=== PATIENT | male | born 1980 | race Caucasian/White ===

== ENCOUNTER → 2016-12-10 | Day surgery (SDC) | payer OTHER ==
[2016-12-04 07:41] VITALS: Ht 165.1 cm; Wt 93.2 kg
[~2016-12-10] VITALS: Ht 165.1 cm; Wt 93.2 kg
[~2016-12-10] MED LIST: 500ML BSS 0.3ML EPI 1:1000PF IRRIG ONE; ACETAMINOPHEN 325 MG TAB PO PRN; AMVISC PLUS 0.8ML SYRINGE INT OCU ONE; ATROPINE SULFATE 0.1 MG/ML 5ML SYR IV PRN; BRIMONIDINE TART 0.2% OP SOLN PER DROP CHARGE ONE; BROM0.07; BSS FLUSH ONE; CIPR1SUS5; ENDOCOAT 0.85ML SYRINGE INT OCU ONE; EpHEDrine SULFATE INJ 50 MG/ML AMP IV PRN; EpINEphrine INJ 1MG/ML AMP 1 MG/ML AMP ONE; LACTATED RINGER'S 1000ML 500 ML IV SCH; LIDOCAINE 4% OP SOLN DROP CHARGE ONE; LIDOCAINE 4% OP SOLN DROP CHARGE OPL SCH; LIDOCAINE HCL 1% MPF 2 ML VIAL ONE; MIDAZOLAM HCL 1 MG/ML 2ML VIAL ONE; MOXIFLOXACIN OPH SOLN PER DROP CHARGE ONE; ONDA4TAB46 PO; ONDA4TAB65 PO; OXYC-57 PO; POVIDONE-IODINE OP SOLN 30 ML BTL ONE; PRED1SUS3 OPL; PROPARACAINE 0.5% OP SOLN PER DROP CHARGE OPL SCH; TOBRAMYCIN/DEXAMETHASONE OPH OINT PER APPLN CHARGE ONE; TRAM-10 PO
[2016-12-10] MEDS: PHENYLEPHRINE HCL 2.5% OP SOLN PER DROP CHARGE OPL SCH ×2 (09:58→10:03)
[2016-12-10] MEDS: TROPICAMIDE 1% OP SOLN PER DROP CHARGE OPL SCH ×2 (09:59→10:04)
[2016-12-10] MEDS: CYCLOPENTOLATE HCL 1% OP SOLN PER DROP CHARGE OPL SCH ×2 (10:00→10:05)
[2016-12-10] MEDS: KETOROLAC 0.5% OP SOLN PER DROP CHARGE OPL SCH ×2 (10:01→10:06)
[2016-12-10] MEDS: MOXIFLOXACIN OPH SOLN PER DROP CHARGE OPL SCH ×2 (10:02→10:12)
--- NOTE | 2016-12-10 10:21 | History & Physical Bridge - [place] ---
H&P Re-Evaluation Bridge Note: I have examined the patient, reviewed the History & Physical and in the interval since the performance of the History & Physical I have noted the following changes of clinical significance: No changes noted
--- NOTE | 2016-12-10 10:42 | [facility] Post Operative Brief Note ---
Immediate Operative Summary Operative Date Dec 10, 2016. Pre-Operative Diagnosis Cataract left eye Post-Operative Diagnosis same Procedure(s) Performed Left Cataract Phacoemulsification With Intraocular Lens Implant Surgeon Dr Parry [employer] Installer Surgeon(s) 0 Estimated Blood Loss 0 Findings cataract left eye Specimens 0 Complication(s) None Disposition Recovery Room / PACU
--- NOTE | 2016-12-10 10:42 | Discharge Instructions-SurgCtr ---
Discharge Instructions Visit Reason for Visit: Left Cataract Discharge Discharge Diagnosis / Problem: cataract left eye Discharge Goals Goal(s): Improve function Activity Recommendations Activity Limitations: per Instructions/Follow-up section Lifting Limitations: no more than 5 pounds Anesthesia . Post Anesthesia Instructions: If you have had General Anesthesia or IV Sedation: * Do not drive today. * Resume driving when surgeon permits. * Do not make important decisions or sign legal documents today. * Call surgeon for: 1. Temperature elevations greater than 101 degrees F. 2. Uncontrollable pain. 3. Excessive bleeding. 4. Persistent nausea and vomiting. 5. Medication intolerance (nausea, vomiting or rash). * For nausea and vomiting use only clear liquids such as: tea, soda, bouillon until nausea subsides, then gradually increase diet as tolerated. * If you have any concerns or questions, call your surgeon's office. If physician is unavailable and it is an emergency, call 911 or go to the nearest emergency room. . Instructions / Follow-Up Instructions / Follow-Up ACTIVITY RECOMMENDATIONS: * Light activities * You may walk outside, read, watch television. * Mild irritation and blurred vision are common for the first few days, redness around the white part of the eye is common. MEDICATIONS: Resume previous medications unless instructed otherwise by your surgeon. Eye drops (today and tomorrow): Cipro - one drop in operative eye every 2 hours while awake Prednisolone 1% - one drop in operative eye every 2 hours while awake Ketorolac - one drop in operative eye every 2 hours while awake Prolensa - one drop operative eye 1 times daily SPECIAL CARE INSTRUCTIONS: * If any problems or concerns, please call Dr. Parry's office at . * Keep plastic shield taped over eye to sleep at night. * Keep plastic shield taped over eye except to administer eye drops. * Keep plastic shield on until office visit the following day. FOLLOW UP VISIT: Follow-up with Dr. Parry in the [place] office as scheduled. If not already scheduled, please call the office at . Diet Recommendations Home Diet: resume previous diet Procedures Procedures Performed: Left Cataract Phacoemulsification With Intraocular Lens Implant Pending Studies Studies pending at discharge: no Medical Emergencies . Who to Call and When: Medical Emergencies: If at any time you feel your situation is an emergency, please call 911 immediately. . Non-Emergent Contact Non-Emergency issues call your: [employer] . . "Provider Documentation" section prepared by Ang Parry.
--- NOTE | 2016-12-10 10:46 | Anesthesia Progress Nt - [facility] ---
Anesthesia Post Op Note Date & Time Dec 10, 2016 at 10:46 Vital Signs Pain Intensity: 0 Vital Signs Past 12 Hours Date Time Temp Pulse Resp B/P Pulse Ox O2 Delivery O2 Flow Rate FiO2 12/10/16 09:57 36.7 79 16 116/80 94 Room Air Notes Mental Status: alert / awake / arousable, participated in evaluation Pt Amnestic to Procedure: Yes Nausea / Vomiting: adequately controlled Pain: adequately controlled Airway Patency, RR, SpO2: stable & adequate BP & HR: stable & adequate Hydration State: stable & adequate Anesthetic Complications: no major complications apparent
[2016-12-10 10:54] VITALS: TEMP 36.5
--- NOTE | 2016-12-10 11:00 | OPERATIVE REPORT ---
DATE OF OPERATION: 12/10/2016 PREOPERATIVE DIAGNOSIS: PSC cataract, left eye. POSTOPERATIVE DIAGNOSIS: PSC cataract, left eye. PROCEDURE: Phacoemulsification cataract extraction with intraocular lens placement, left eye. SURGEON: Dr. Parry. COMPLICATIONS: None. ESTIMATED BLOOD LOSS: None. ANESTHESIA: Topical with sedation. OPERATION AND FINDINGS: After informed consent was obtained in the holding area the patient was wheeled back to the Operating Room where cardiac monitoring leads and oxygen by nasal cannula was administered by Anesthesia. Gentle IV sedation was given, and the patient's left eye was prepped and draped in usual sterile fashion. A wire lid speculum was placed into the left eye and the operating microscope was swung into position. Using 0.12 forceps and a Supersharp blade a paracentesis port was made 3 o'clock hours away from the 3 o'clock position of patient's left eye. 1% non-preserved Lidocaine was then injected into the anterior chamber for anesthesia. A 2.2 mm keratotome blade was then used to make a shelved clear corneal incision at the 3 o'clock position of his left eye. Amvisc was injected into the anterior chamber and a cystotome and Utrata forceps were used to perform a curvilinear capsulorrhexis. BSS on a hydrodissection cannula was used to hydrodissect the lens nucleus away from the capsular bag. The phacoemulsification handpiece was then used in a stop and chop fashion to remove the lens nucleus. The irrigation and aspiration handpiece was then used to remove the residual cortical material. Amvisc was injected into the capsular bag and anterior chamber and a Bausch \T\ Lomb MX60, 22.5 Diopter intraocular lens was injected into the capsular bag. Irrigation and aspiration handpiece was used to remove the residual viscoelastic material. The wounds were hydrated and noted to be watertight. The wire lid speculum was removed from the eye. Vigamox, Brimonidine, and TobraDex ointment were placed on the eye and it was shielded. It should be noted that EndoCoat was used during the case to protect the cornea endothelium. DISPOSITION: The patient tolerated the procedure well and was wheeled to the post anesthesia care unit in stable condition. I attest to the content of the Intraoperative Record and any orders documented therein. Any exceptions are noted below. I attest to the content of the Intraoperative Record and any orders documented therein. Any exceptio ns are noted below.
[2016-12-10 11:09] VITALS: BP 113/76; PULSE 78; O2SAT 95
== END | disposition home or self-care (01) ==
LOC: X.SURG 09:46
PROVIDERS: ATTEND Ophthalmology
DX: H25.12 Age-related nuclear cataract, left eye (principal); F17.210 Nicotine dependence, cigarettes, uncomplicated

== ENCOUNTER 2017-03-02 19:53 | Emergency (ER) | payer OTHER ==
[~2017-03-02] VITALS: Ht 165.1 cm; Wt 97.7 kg
[~2017-03-02 19:53] MED LIST changes: -500ML BSS 0.3ML EPI 1:1000PF IRRIG ONE; -ACETAMINOPHEN 325 MG TAB PO PRN; -AMVISC PLUS 0.8ML SYRINGE INT OCU ONE; -ATROPINE SULFATE 0.1 MG/ML 5ML SYR IV PRN; -BRIMONIDINE TART 0.2% OP SOLN PER DROP CHARGE ONE; -BSS FLUSH ONE; -ENDOCOAT 0.85ML SYRINGE INT OCU ONE; -EpHEDrine SULFATE INJ 50 MG/ML AMP IV PRN; -EpINEphrine INJ 1MG/ML AMP 1 MG/ML AMP ONE; -LACTATED RINGER'S 1000ML 500 ML IV SCH; -LIDOCAINE 4% OP SOLN DROP CHARGE ONE; -LIDOCAINE 4% OP SOLN DROP CHARGE OPL SCH; -LIDOCAINE HCL 1% MPF 2 ML VIAL ONE; -MIDAZOLAM HCL 1 MG/ML 2ML VIAL ONE; -MOXIFLOXACIN OPH SOLN PER DROP CHARGE ONE; -ONDA4TAB46 PO; -ONDA4TAB65 PO; -OXYC-57 PO; -POVIDONE-IODINE OP SOLN 30 ML BTL ONE; -PROPARACAINE 0.5% OP SOLN PER DROP CHARGE OPL SCH; -TOBRAMYCIN/DEXAMETHASONE OPH OINT PER APPLN CHARGE ONE; -TRAM-10 PO
[2017-03-02 20:03] VITALS: BP 127/85; PULSE 82; TEMP 36.7; O2SAT 96; Ht 165.1 cm; Wt 97.7 kg
--- NOTE | 2017-03-02 20:33 | DIAGNOSTIC IMAGING REPORT ---
LEFT FOOT MIN 3 VIEWS ROUTINE CLINICAL HISTORY: Left foot pain status post trauma COMPARISON: None. DISCUSSION: No fractures or dislocations are visualized. There is a tiny plantar calcaneal spur IMPRESSION: No fractures or dislocations identified Electronically signed by: Vasiliy Villatoro M.D. 03/02/2017 8:31 PM Dictated Date/Time: 03/02/2017 8:30 PM
[2017-03-02] MEDS ORDERED: TRAM-10 PO (21:22)
--- NOTE | 2017-03-02 21:22 | EMERGENCY ROOM VISIT NOTE ---
ED Visit Note First contact with patient: 20:07 Chief Complaint: LEFT Foot Pain History of Present Illness: Patient is a 36-year-old male who presents to the emergency department by private vehicle for evaluation of an LEFT foot injury. The patient reports that he was stepping on a wall when he slipped and twisted his LEFT foot. He reports increasing pain and with ambulation. He denies any numbness or tingling into his toes. He reports no previous history of fracture or injury to the affected foot. He has taken 2 Aleve without relief of symptoms. The patient rates his current discomfort as a 4/10. He denies any associated ankle pain, calf pain, or knee pain. Medications: Reviewed and discussed with the patient. Allergies: No known allergies. PMH: No pertinent past medical history. SHx: Patient is a 36-year-old male who lives locally. ROS: All pertinent positive and negative review of systems are appropriately documented in the History of Present Illness. Physical Exam: VITAL SIGNS - Vital signs and nursing notes were reviewed. GENERAL - 36-year-old male appearing his stated age and in noticeable discomfort throughout the exam. MUSCULOSKELETAL - LEFT foot without erythema, edema, and ecchymosis. Moderate tenderness to palpation appreciated over the lateral surface of the dorsum of the foot. No tenderness to palpation in the plantar arch. No tenderness extending into the ankle or toes. Pt with full AROM at affected joint. NEUROLOGIC/VASCULAR - Neurovascularly intact distally with +3/5 dorsalis pedis pulses palpated bilaterally. Normal sensation to light and sharp touch appreciated distally. IMAGING: LEFT FOOT MIN 3 VIEWS ROUTINE CLINICAL HISTORY: Left foot pain status post trauma COMPARISON: None. DISCUSSION: No fractures or dislocations are visualized. There is a tiny plantar calcaneal spur IMPRESSION: No fractures or dislocations identified ED Course: Patient was seen and evaluated by myself. Patient was provided an ice pack for comfort. Patient declined anything for pain initially for their complaint of pain. X-rays were obtained of the affected foot. Imaging results as above. Images were discussed and reviewed with the patient who acknowledges understanding. Patient was provided a post-op shoe for his comfort. He declines crutches. Patient was provided Ultram for pain control at home. Patient educated on worrisome symptoms for return visit to the emergency department. Patient with follow-up with their primary care provided in 4-5 days if their symptoms are not improving. Patient discharged to home in good condition. Impression: LEFT Foot Sprain Discharge Instructions: You have been treated in the Emergency Department for your LEFT Foot Sprain. You have been prescribed Ultram to be used for pain control. You cannot drive or consume alcohol while on this medicine. This medicine should only be used for pain that cannot be controlled with meip-nds-siayoze pain medicines. For pain control, you can use the following fqqa-dsm-hnzumud medicines (if >12 yo): - Regular strength (325mg/tab) Tylenol (acetaminophen) 2 tabs every 4-6 hours as needed. Do not exceed 12 tablets in a 24 hour period. Avoid taking more than 4 grams (4000 mg) of Tylenol per day. This includes any other sources of acetaminophen you may take on a regular basis. - Regular strength (200 mg/tab) Advil (ibuprofen) 1-2 tabs every 4-6 hours as needed. Do not exceed a dose of 3200 mg per day. If this is a recent injury (<24 hrs), ice can be applied to the area of pain for the first 3 days to help decrease pain and inflammation. Use the postop shoe for comfort for the next 4-5 days. Follow-up with your primary care provider or orthopedic surgeon for recheck if your symptoms are not improving in the next 4-5 days. Return to the Emergency Department if your current symptoms worsen despite treatment course outlined above, or if you develop any of the following symptoms : intractable pain despite aforementioned treatment course or new onset of numbness or tingling of the foot. Problem List Medical Problems: (1) Degeneration of lumbar intervertebral disc Status: Chronic Current/Historical Medications Scheduled PRN Tramadol (Ultram), 1-2 TAB PO Q4H PRN for Pain Allergies Coded Allergies: No Known Allergies (Unverified , 12/10/16) Vital Signs Date Time Temp Pulse Resp B/P Pulse Ox O2 Delivery O2 Flow Rate FiO2 03/02/17 20:03 36.7 82 18 127/85 96 Room Air Medications Administered Medications (Trade) Dose Ordered Sig/Tato Route Start Time Stop Time Status Last Admin Dose Admin Tramadol HCl (Ultram Home Pack) 1 homepack UD ONCE PO 03/02/17 21:30 03/02/17 21:31 DC 03/02/17 21:28 1 HOMEPACK Departure Information Impression Primary Impression: Foot sprain Dispostion Home / Self-Care Condition GOOD Prescriptions Tramadol (Ultram) 50 Mg Tab 1-2 TAB PO Q4H Y for Pain, #16 TAB For Initial Treatment Prov: Isaías Lozano PA-C 03/02/17 Referrals No Doctor, Assigned (PCP) Alexander Perez D.O. Patient Instructions ED Sprain Foot, My [facility] Additional Instructions You have been treated in the Emergency Department for your LEFT Foot Sprain. You have been prescribed Ultram to be used for pain control. You cannot drive or consume alcohol while on this medicine. This medicine should only be used for pain that cannot be controlled with lmec-udu-jkqfxlp pain medicines. For pain control, you can use the following kbns-zwz-kjtlqvv medicines (if >12 yo): - Regular strength (325mg/tab) Tylenol (acetaminophen) 2 tabs every 4-6 hours as needed. Do not exceed 12 tablets in a 24 hour period. Avoid taking more than 4 grams (4000 mg) of Tylenol per day. This includes any other sources of acetaminophen you may take on a regular basis. - Regular strength (200 mg/tab) Advil (ibuprofen) 1-2 tabs every 4-6 hours as needed. Do not exceed a dose of 3200 mg per day. If this is a recent injury (<24 hrs), ice can be applied to the area of pain for the first 3 days to help decrease pain and inflammation. Use the postop shoe for comfort for the next 4-5 days. Follow-up with your primary care provider or orthopedic surgeon for recheck if your symptoms are not improving in the next 4-5 days. Return to the Emergency Department if your current symptoms worsen despite treatment course outlined above, or if you develop any of the following symptoms : intractable pain despite aforementioned treatment course or new onset of numbness or tingling of the foot. Problem Qualifiers Primary Impression: Foot sprain Encounter type: initial encounter Laterality: left Qualified Codes: S93.602A - Unspecified sprain of left foot, initial encounter
[2017-03-02] MEDS ORDERED: TRAMADOL HCL 50 MG HOME PACK PO ONE (21:30)
[2017-07-23] MEDS ORDERED: OXYC-57 PO (08:18)
[2017-07-23] MEDS ORDERED: ONDA4TAB65 PO (08:18)
[2017-07-25] MEDS ORDERED: OXYC-57 PO (10:35)
[2017-07-25] MEDS ORDERED: ONDA4TAB46 PO (10:35)
[2017-07-26] MEDS ORDERED: OXYC-57 PO (11:34)
== END 2017-03-02 21:29 | disposition home or self-care (01) ==
LOC: C.EDD 20:33
DX: S93.602A Unspecified sprain of left foot, initial encounter (principal); X58.XXXA Exposure to other specified factors, initial encounter; M51.36 Other intervertebral disc degeneration, lumbar region

== ENCOUNTER 2017-07-20 20:46 | Inpatient (IN) | payer OTHER ==
[~2017-07-20] VITALS: Ht 165.1 cm; Wt 92.2 kg
[~2017-07-20 20:46] MED LIST changes: -BROM0.07; -CIPR1SUS5; -PRED1SUS3 OPL; +TRAM-10 PO
[2017-07-20] MEDS ORDERED: SODIUM CHLORIDE 0.9% 1000ML 1,000 ML IV STA ×2 (21:00→23:54)
[2017-07-20] MEDS ORDERED: ONDANSETRON INJ 2 MG/ML 2 ML VIAL IV STA (21:00)
[2017-07-20] MEDS ORDERED: MoRPHine SULFATE 4 MG/ML 1 ML CARP\\VIAL IV STA (21:00)
[2017-07-20 21:12] LABS: URINE APPEARANCE CLEAR (CLEAR); URINE BILIRUBIN NEG (NEG); URINE COLOR YELLOW; URINE EPITHELIAL CELL AUTO 0-5 /lpf (0-5); URINE NITRITE NEG (NEG); URINE PH 5.5 (4.5-7.5); URINE SPECIFIC GRAVITY 1.017 (1.000-1.030); UROBILINOGEN NEG (NEG)
[2017-07-20 21:15] LABS: MANUAL MICROSCOPIC REQUIRED? NO; REVIEW REQ? NO
[2017-07-20 21:21] LABS: BASO % 0.7 %; BASO ABS # 0.09 K/uL (0-0.2); COMPLETE YES; EOS % 2.8 %; HEMATOCRIT 44.3 % (42-52); IG% 0.3 %; LYMPH % 37.7 %; LYMPH ABS # 4.93 K/uL (1.2-3.4); MEAN CELL VOLUME 93.5 fL (80-100); MEAN CORPUSCULAR HEMOGLOBIN 33.5 pg (25-34); MEAN CORPUSCULAR HGB CONC 35.9 g/dl (32-36); MEAN PLATELET VOLUME 9.9 fL (7.4-10.4); MONO % 9.2 %; NEUT % 49.3 %; PLATELET COUNT 281 K/uL (130-400); RED BLOOD COUNT 4.74 M/uL (4.7-6.1); WHITE BLOOD COUNT 13.07 K/uL (4.8-10.8)
[2017-07-20 21:38] LABS: BUN/CREATININE RATIO 11.6 (10-20); CALCIUM 9.3 mg/dl (8.5-10.1); CREATININE 1.1 mg/dl (0.60-1.40); POTASSIUM 3.9 mmol/L (3.5-5.1)
[2017-07-20] MEDS ORDERED: HYDROmorphone INJ 1 MG/ML SYR IV STA ×2 (21:46→23:01)
--- NOTE | 2017-07-20 21:55 | DIAGNOSTIC IMAGING REPORT ---
ABD/PELVIS WITHOUT FOR STONE CLINICAL HISTORY: 37 years-old Male presenting with left flank pain eval for stone. TECHNIQUE: Multidetector CT of the abdomen and pelvis was performed without the use of intravenous contrast. IV contrast: None. A dose lowering technique was used consistent with the principles of ALARA (as low as reasonably achievable). COMPARISON: None. CT DOSE (mGy.cm): The estimated cumulative dose is 1388.92 mGy.cm. FINDINGS: Dean topogram: Unremarkable. Lung bases: Lung bases clear. No pericardial or pleural effusion. Liver: Normal morphology. Hepatic steatosis. Focal fatty sparing immediately superior to the gallbladder fossa suggested. Biliary: No gross biliary ductal dilatation allowing for noncontrast technique. Normal gallbladder. Pancreas: Normal. Spleen: Normal. Adrenal glands: Normal. Kidneys and ureters: Right kidney and collecting system normal. Right ureter normal. Left kidney is slightly enlarged with perinephric fat stranding. Dilatation of the left renal collecting system and left renal pelvis. Obstructing 6 mm calculus impacted at the left ureteropelvic junction. Periureteral fat stranding. Mid to distal ureter decompressed. Bladder: Normal. Pelvic organs: Prostate and seminal vesicles normal. Bowel: Normal appendix. No bowel obstruction. Peritoneal cavity: No free fluid or intraperitoneal gas. Vasculature: Atherosclerosis of the normal caliber abdominal aorta. Lymph nodes: No gross lymphadenopathy allowing for noncontrast technique. Abdominal wall: Normal. Musculoskeletal: Degenerative changes of the left sacroiliac joint IMPRESSION: 1. Obstructing 6 mm calculus at the left ureteropelvic junction with resultant left hydronephrosis. No additional renal calculus. 2. Hepatic steatosis. Electronically signed by: Bruce Richter M.D. 07/20/2017 9:53 PM Dictated Date/Time: 07/20/2017 9:48 PM
[2017-07-20] MEDS ORDERED: KETOROLAC TROMETHAMINE 30 MG/ML VIAL IV STA (23:01)
--- NOTE | 2017-07-20 23:52 | History and Physical ---
History & Physical Date & Time of Service: Jul 20, 2017 at 23:52 Chief Complaint: Sever Abd/ Flank Pain Primary Care Physician: No Doctor, Assigned History of Present Illness Source: patient, partner Mr James is a 37 year old male who presents to the ER with left sided back pain. Started around 10-10:30am while walking. Progressively worse throughout the day. Radiation to his left testicle. Severity 10/10 at worse. Pacing around with the pain. Never had kidney stones before. Associated fevers, chills. In the ER he received morphine, Dilaudid and Toradol and he is currently without pain. CT scan showed an obstructing 6 mm calculus at the left ureteropelvic junction with resultant left hydronephrosis. Past Medical/Surgical History Medical Problems: (1) Degeneration of lumbar intervertebral disc Status: Chronic Family History Cancer Social History Smoking Status: Current Every Day Smoker (6 cigarettes/day) Smokeless Tobacco Use: Yes Alcohol Use: occasionally Drug Use: none Marital Status: Housing status: lives with family Occupational Status: employed Immunizations History of Influenza Vaccine: Unknown History of Tetanus Vaccine?: Unknown History of Pneumococcal: No History of Hepatitis B Vaccine: Unknown Multi-Drug Resistant Organisms History of MDRO: No Allergies Coded Allergies: No Known Allergies (Unverified , 12/10/16) Review of Systems Constitutional: + chills, No fever Eyes: No worsening of vision ENT: No hearing loss, No sore throat Respiratory: No cough, No sputum, No wheezing, No shortness of breath Cardiovascular: No chest pain, No orthopnea, No PND, No edema, No palpitations Abdomen: + pain, No nausea, No vomiting, No diarrhea, No constipation, No GI bleeding Musculoskeletal: + joint pain (back pain), No muscle pain Genitourinary - Male: No hematuria, No dysuria, No urinary frequency Endocrine: No fatigue, No excessive thirst, No excessive urination Hematologic / Lymphatic: No abnormal bleeding/bruising Integumentary: No rash, No itch Physical Exam Vital Signs Date Time Temp Pulse Resp B/P (MAP) Pulse Ox O2 Delivery O2 Flow Rate FiO2 07/20/17 22:44 78 22 131/78 96 Room Air 07/20/17 20:50 36.8 79 24 137/89 94 Room Air General Appearance: WD/WN, no apparent distress Head: normocephalic, atraumatic Eyes: normal inspection, PERRL, EOMI Neck: supple, trachea midline Respiratory/Chest: chest non-tender, lungs clear, normal breath sounds, no respiratory distress, no accessory muscle use Cardiovascular: regular rate, rhythm, no edema, no murmur, normal peripheral pulses Abdomen/GI: normal bowel sounds, non tender, soft Back: + left CVA tenderness, + pertinent finding (no right sided CVA tenderness ) Extremities/Musculoskelatal: no calf tenderness, normal capillary refill, no pedal edema Neurologic/Psych: senior information developer II-XII nml as tested (no facial droop), no motor/sensory deficits (grossly), alert, normal mood/affect, oriented x 3 Skin: normal color, warm/dry, no rash Diagnostics Laboratory Results Results Past 24 Hours Test 07/20/17 20:58 07/20/17 21:09 Range/Units Urine Color YELLOW Urine Appearance CLEAR CLEAR Urine pH 5.5 4.5-7.5 Urine Specific [place] 1.017 1.000-1.030 Urine Protein NEG NEG Urine Glucose (UA) NEG NEG Urine Ketones NEG NEG Urine Occult Blood NEG NEG Urine Nitrite NEG NEG Urine Bilirubin NEG NEG Urine Urobilinogen NEG NEG Urine Leukocyte Esterase TRACE NEG Urine WBC (Auto) 1-5 0-5 /hpf Urine RBC (Auto) 5-10 0-4 /hpf Urine Hyaline Casts (Auto) 0 0-5 /lpf Urine Epithelial Cells (Auto) 0-5 0-5 /lpf Urine Bacteria (Auto) NEG NEG White Blood Count 13.07 4.8-10.8 K/uL Red Blood Count 4.74 4.7-6.1 M/uL Hemoglobin 15.9 14.0-18.0 g/dL Hematocrit 44.3 42-52 % Mean Corpuscular Volume 93.5 80-100 fL Mean Corpuscular Hemoglobin 33.5 25-34 pg Mean Corpuscular Hemoglobin Concent 35.9 32-36 g/dl Platelet Count 281 130-400 K/uL Mean Platelet Volume 9.9 7.4-10.4 fL Neutrophils (%) (Auto) 49.3 % Lymphocytes (%) (Auto) 37.7 % Monocytes (%) (Auto) 9.2 % Eosinophils (%) (Auto) 2.8 % Basophils (%) (Auto) 0.7 % Neutrophils # (Auto) 6.45 1.4-6.5 K/uL Lymphocytes # (Auto) 4.93 1.2-3.4 K/uL Monocytes # (Auto) 1.20 0.11-0.59 K/uL Eosinophils # (Auto) 0.36 0-0.5 K/uL Basophils # (Auto) 0.09 0-0.2 K/uL RDW Standard Deviation 41.2 36.4-46.3 fL RDW Coefficient of Variation 12.0 11.5-14.5 % Immature Granulocyte % (Auto) 0.3 % Immature Granulocyte # (Auto) 0.04 0.00-0.02 K/uL Sodium Level 140 136-145 mmol/L Potassium Level 3.9 3.5-5.1 mmol/L Chloride Level 106 98-107 mmol/L Carbon Dioxide Level 27 21-32 mmol/L Anion Gap 7.0 3-11 mmol/L Blood Urea Nitrogen 13 7-18 mg/dl Creatinine 1.10 0.60-1.40 mg/dl Est Creatinine Clear Calc Drug Dose 94.1 ml/min Estimated GFR () 97.5 Estimated GFR (Non- 84.1 BUN/Creatinine Ratio 11.6 10-20 Random Glucose 84 70-99 mg/dl Calcium Level 9.3 8.5-10.1 mg/dl Total Bilirubin 0.7 0.2-1 mg/dl Direct Bilirubin 0.2 0-0.2 mg/dl Aspartate Amino Transf (AST/SGOT) 48 15-37 U/L Alanine Aminotransferase (ALT/SGPT) 94 12-78 U/L Alkaline Phosphatase 59 45-117 U/L Total Protein 7.5 6.4-8.2 gm/dl Albumin 4.1 3.4-5.0 gm/dl Lipase 38 73-393 U/L Diagnostic Radiology ABD/PELVIS WITHOUT FOR STONE CLINICAL HISTORY: 37 years-old Male presenting with left flank pain eval for stone. TECHNIQUE: Multidetector CT of the abdomen and pelvis was performed without the use of intravenous contrast. IV contrast: None. A dose lowering technique was used consistent with the principles of ALARA (as low as reasonably achievable). COMPARISON: None. CT DOSE (mGy.cm): The estimated cumulative dose is 1388.92 mGy.cm. FINDINGS: Library Circulation Technician topogram: Unremarkable. Lung bases: Lung bases clear. No pericardial or pleural effusion. Liver: Normal morphology. Hepatic steatosis. Focal fatty sparing immediately superior to the gallbladder fossa suggested. Biliary: No gross biliary ductal dilatation allowing for noncontrast technique. Normal gallbladder. Pancreas: Normal. Spleen: Normal. Adrenal glands: Normal. Kidneys and ureters: Right kidney and collecting system normal. Right ureter normal. Left kidney is slightly enlarged with perinephric fat stranding. Dilatation of the left renal collecting system and left renal pelvis. Obstructing 6 mm calculus impacted at the left ureteropelvic junction. Periureteral fat stranding. Mid to distal ureter decompressed. Bladder: Normal. Pelvic organs: Prostate and seminal vesicles normal. Bowel: Normal appendix. No bowel obstruction. Peritoneal cavity: No free fluid or intraperitoneal gas. Vasculature: Atherosclerosis of the normal caliber abdominal aorta. Lymph nodes: No gross lymphadenopathy allowing for noncontrast technique. Abdominal wall: Normal. Musculoskeletal: Degenerative changes of the left sacroiliac joint IMPRESSION: 1. Obstructing 6 mm calculus at the left ureteropelvic junction with resultant left hydronephrosis. No additional renal calculus. 2. Hepatic steatosis. Electronically signed by: Bruce Richter M.D. 07/20/2017 9:53 PM Dictated Date/Time: 07/20/2017 9:48 PM Impression Assessment and Plan 37 year old healthy male admission for left nephrolithiasis with hydronephrosis - pain currently controlled after Toradol given Nephrolithiasis with left hydronephrosis confirmed by CT - Urine culture, then start ceftriaxone to cover for infection given hydronephrosis - Consult urology - Dr Bauman - strain urine Hepatic steatosis - elevated transaminitis, monitor. Likely diet related and he is already making changed regarding this - O/P follow up VTE Prophylaxis - chemical prophylaxis not indicated given young age and mobile. - SCDs + TEDs Code - Full Disposition - admit to med/surg Attending Addendum: I have physically seen and examined this patient, have supervised the medical residents activities, and agree with the H&P as noted above with the following exceptions as noted. The patient presents to the emergency department with left-sided flank pain that radiated to the left testicle, that began early in the morning, and worsened as the day progressed. The patient denies chest pain, palpitations, shortness of breath, cough, lower extremity swelling, vision change, hearing change, sore throat, fevers, chills, sweats, weight change, fatigue, nausea, vomiting, diarrhea or constipation, blood in urine or stool, dysuria, urinary frequency or urgency, lightheadedness , dizziness, headache, memory loss, rash, abnormal bruising or bleeding, imbalance, focal or generalized weakness, numbness or tingling in arms or legs, generalized arthralgias or myalgias, neck pain, night sweats, or allergy symptoms. The review of systems is otherwise negative other than for that already noted above, and at least 10 systems have been reviewed. The patient is awake, well-developed and adequately nourished, alert and oriented 3, normocephalic and atraumatic, lying in bed and in no acute distress. HEENT--PERRL, EOMI, mucous membranes and oropharynx dry. Neck--supple, no JVD or bruits, thyroid normal, trachea midline, no adenopathy. Heart--normal S1 and S2, no extra beats, no murmurs, rubs or gallops. Lungs--clear bilaterally with good air movement, no respiratory distress, no accessory muscle use. Abdomen--normal bowel sounds and soft, left flank tenderness. Nondistended, no hernias or masses, no organomegaly. Extremities--no cyanosis, clubbing or edema. There are good distal pulses b/l. Dermatologic--normal skin turgor, normal color, warm and dry, no abnormal lymph nodes, no rash. Neurologic--cranial nerves II through XII grossly intact, motor and sensory examination normal. Rheumatologic--normal range of motion, nontender, muscles and joints. Psychiatric--normal affect. Assessment and Plan: 1. 6 mm left ureteral stone/left hydronephrosis with perinephric fat stranding- -the patient will be admitted to the medical surgical floor. Nothing by mouth after midnight. IV fluid rehydration overnight. Dilaudid IV when necessary. Follow urine culture and sensitivity report Consult Dr. Bauman from urology. Level of Care Med/Surg Advanced Directives Existing Advance Directive: No Existing Living Will: No Existing Power of Biller: No Resuscitation Status FULL RESUSCITATION VTE Prophylaxis VTE Risk Assessment Done? Y/N: Yes Risk Level: Moderate Given or contraindicated: T.E.D. Stockings, SCD's, Treatment not indicated Social Service Consult None Apply Resident Tracking Resident Involvement: Resident Care Provided Care Provided: [facility]
--- NOTE | 2017-07-21 00:14 | EMERGENCY ROOM VISIT NOTE ---
History Report prepared by Ricardo: Kendy Caban Under the Supervision of: Dr. Neno Inman M.D. First contact with patient: 20:55 Chief Complaint: FLANK PAIN Stated Complaint: SEVER ABD/ FLANK PAIN History of Present Illness The patient is a 37 year old male who presents to the Emergency Room with complaints of intermittent severe left sided flank pain starting this morning. The patient states that that the pain is sharp. He notes that the pain radiates to his back. The patient denies any urinary symptoms, fever, vomiting, and diarrhea. The patient notes he has had chills. He denies a family history of kidney stones. Source of History: patient Onset: this morning Position: other (left flank) Symptom Intensity: severe Quality: sharp Timing: intermittent Modifying Factors (Relieving): other (none) Associated Symptoms: + chills, + back pain, No fevers, No vomiting, No diarrhea, No urinary symptoms Note: The patient denies a family history of kidney stones. Review of Systems See HPI for pertinent positives & negatives. A total of 10 systems reviewed and were otherwise negative. Past Medical & Surgical Medical Problems: (1) Degeneration of lumbar intervertebral disc (2) Hydronephrosis of left kidney (3) Left nephrolithiasis (4) Renal colic on left side Family History Cancer Social History Smoking Status: Current Every Day Smoker Alcohol Use: none Marital Status: Housing Status: lives with family Occupation Status: employed Allergies Coded Allergies: No Known Allergies (Unverified , 12/10/16) Physical Exam Vital Signs Date Time Temp Pulse Resp B/P (MAP) Pulse Ox O2 Delivery O2 Flow Rate FiO2 07/20/17 22:44 78 22 131/78 96 Room Air 07/20/17 20:50 36.8 79 24 137/89 94 Room Air Physical Exam Constitutional: Vital signs reviewed. Pacing the room. Eyes: Pupils are equal round reactive to light. Conjunctiva are noninjected. ENT: Pharynx is clear without erythema or exudate. Mucous membranes are moist. Neck supple without meningeal signs. Respiratory: Clear to auscultation bilaterally. Breath sounds are equal bilaterally. Cardiovascular: Regular rate and rhythm. No rubs or gallops. GI: Soft, nondistended. Left lower quadrant tenderness. No guarding. Bowel sounds are present. Musculoskeletal: No peripheral edema. No CVA tenderness. Integumentary: No cyanosis. Neurological: The patient is awake and alert. No focal deficits. Psychiatric: Normal affect. Medical Decision & Procedures ER Provider Diagnostic Interpretation: Radiology results as stated below per my review and the radiologist's interpretation: ABD/PELVIS WITHOUT FOR STONE CLINICAL HISTORY: 37 years-old Male presenting with left flank pain eval for stone. TECHNIQUE: Multidetector CT of the abdomen and pelvis was performed without the use of intravenous contrast. IV contrast: None. A dose lowering technique was used consistent with the principles of ALARA (as low as reasonably achievable). COMPARISON: None. CT DOSE (mGy.cm): The estimated cumulative dose is 1388.92 mGy.cm. FINDINGS: Signal Manager topogram: Unremarkable. Lung bases: Lung bases clear. No pericardial or pleural effusion. Liver: Normal morphology. Hepatic steatosis. Focal fatty sparing immediately superior to the gallbladder fossa suggested. Biliary: No gross biliary ductal dilatation allowing for noncontrast technique. Normal gallbladder. Pancreas: Normal. Spleen: Normal. Adrenal glands: Normal. Kidneys and ureters: Right kidney and collecting system normal. Right ureter normal. Left kidney is slightly enlarged with perinephric fat stranding. Dilatation of the left renal collecting system and left renal pelvis. Obstructing 6 mm calculus impacted at the left ureteropelvic junction. Periureteral fat stranding. Mid to distal ureter decompressed. Bladder: Normal. Pelvic organs: Prostate and seminal vesicles normal. Bowel: Normal appendix. No bowel obstruction. Peritoneal cavity: No free fluid or intraperitoneal gas. Vasculature: Atherosclerosis of the normal caliber abdominal aorta. Lymph nodes: No gross lymphadenopathy allowing for noncontrast technique. Abdominal wall: Normal. Musculoskeletal: Degenerative changes of the left sacroiliac joint IMPRESSION: 1. Obstructing 6 mm calculus at the left ureteropelvic junction with resultant left hydronephrosis. No additional renal calculus. 2. Hepatic steatosis. Electronically signed by: Bruce Richter M.D. 07/20/2017 9:53 PM Dictated Date/Time: 07/20/2017 9:48 PM Laboratory Results 07/20/17 21:09 Red Blood Count 4.74, Mean Corpuscular Volume 93.5, Mean Corpuscular Hemoglobin 33.5, Mean Corpuscular Hemoglobin Concent 35.9, Mean Platelet Volume 9.9, Neutrophils (%) (Auto) 49.3, Lymphocytes (%) (Auto) 37.7, Monocytes (%) (Auto) 9.2, Eosinophils (%) (Auto) 2.8, Basophils (%) (Auto) 0.7, Neutrophils # (Auto) 6.45, Lymphocytes # (Auto) 4.93, Monocytes # (Auto) 1.20, Eosinophils # (Auto) 0.36, Basophils # (Auto) 0.09 07/20/17 21:09 Test 07/20/17 20:58 07/20/17 21:09 Urine Color YELLOW Urine Appearance CLEAR (CLEAR) Urine pH 5.5 (4.5-7.5) Urine Specific [place] 1.017 (1.000-1.030) Urine Protein NEG (NEG) Urine Glucose (UA) NEG (NEG) Urine Ketones NEG (NEG) Urine Occult Blood NEG (NEG) Urine Nitrite NEG (NEG) Urine Bilirubin NEG (NEG) Urine Urobilinogen NEG (NEG) Urine Leukocyte Esterase TRACE (NEG) Urine WBC (Auto) 1-5 /hpf (0-5) Urine RBC (Auto) 5-10 /hpf (0-4) Urine Hyaline Casts (Auto) 0 /lpf (0-5) Urine Epithelial Cells (Auto) 0-5 /lpf (0-5) Urine Bacteria (Auto) NEG (NEG) White Blood Count 13.07 K/uL (4.8-10.8) Red Blood Count 4.74 M/uL (4.7-6.1) Hemoglobin 15.9 g/dL (14.0-18.0) Hematocrit 44.3 % (42-52) Mean Corpuscular Volume 93.5 fL (80-100) Mean Corpuscular Hemoglobin 33.5 pg (25-34) Mean Corpuscular Hemoglobin Concent 35.9 g/dl (32-36) Platelet Count 281 K/uL (130-400) Mean Platelet Volume 9.9 fL (7.4-10.4) Neutrophils (%) (Auto) 49.3 % Lymphocytes (%) (Auto) 37.7 % Monocytes (%) (Auto) 9.2 % Eosinophils (%) (Auto) 2.8 % Basophils (%) (Auto) 0.7 % Neutrophils # (Auto) 6.45 K/uL (1.4-6.5) Lymphocytes # (Auto) 4.93 K/uL (1.2-3.4) Monocytes # (Auto) 1.20 K/uL (0.11-0.59) Eosinophils # (Auto) 0.36 K/uL (0-0.5) Basophils # (Auto) 0.09 K/uL (0-0.2) RDW Standard Deviation 41.2 fL (36.4-46.3) RDW Coefficient of Variation 12.0 % (11.5-14.5) Immature Granulocyte % (Auto) 0.3 % Immature Granulocyte # (Auto) 0.04 K/uL (0.00-0.02) Anion Gap 7.0 mmol/L (3-11) Est Creatinine Clear Calc Drug Dose 94.1 ml/min Estimated GFR () 97.5 Estimated GFR (Non- 84.1 BUN/Creatinine Ratio 11.6 (10-20) Calcium Level 9.3 mg/dl (8.5-10.1) Total Bilirubin 0.7 mg/dl (0.2-1) Direct Bilirubin 0.2 mg/dl (0-0.2) Aspartate Amino Transf (AST/SGOT) 48 U/L (15-37) Alanine Aminotransferase (ALT/SGPT) 94 U/L (12-78) Alkaline Phosphatase 59 U/L (45-117) Total Protein 7.5 gm/dl (6.4-8.2) Albumin 4.1 gm/dl (3.4-5.0) Lipase 38 U/L (73-393) Laboratory results as reviewed by me. Medications Administered Medications (Trade) Dose Ordered Sig/Tato Route Start Time Stop Time Status Last Admin Dose Admin Morphine Sulfate (MoRPHine SULFATE INJ) 4 mg ONE STAT IV 07/20/17 21:00 07/20/17 21:02 DC 07/20/17 21:25 4 MG Ondansetron HCl (Zofran Inj) 4 mg NOW STAT IV 07/20/17 21:00 07/20/17 21:02 DC 07/20/17 21:20 4 MG Sodium Chloride 1,000 ml @ 999 mls/hr Q1H1M STAT IV 07/20/17 21:00 07/20/17 22:00 DC 07/20/17 21:25 999 MLS/HR Hydromorphone HCl (Dilaudid Inj) 0.5 mg NOW STAT IV 07/20/17 21:46 07/20/17 21:47 DC 07/20/17 21:53 0.5 MG Ketorolac Tromethamine (Toradol Inj) 10 mg NOW STAT IV 07/20/17 23:01 07/20/17 23:02 DC 07/20/17 23:09 10 MG Hydromorphone HCl (Dilaudid Inj) 0.5 mg NOW STAT IV 07/20/17 23:01 07/20/17 23:02 DC 07/20/17 23:01 0.5 MG ED Course 2057: The patient was evaluated in room C11B. A complete history and physical exam was performed. 2100: Ordered NSS 1000 ml @ 999 mls/hr IV, Zofran Inj 4 mg IV, Morphine Sulfate 4 mg IV. 5: I reevaluated the patient and he is still having pain. 6: Ordered Dilaudid Inj 0.5 mg IV. 2157: I discussed the patient's test results with him. He is still having significant pain upon reevaluation. 2300: The patient is still writhing in pain upon reevaluation. 2301: Ordered Dilaudid Inj 0.5 mg IV, Toradol Inj 10 mg IV. 2323: I reevaluated the patient and he feels much better. He doesn't want to be admitted thought even though he has persistent pain. He is drinking water now to see how he feels. 2333: The patient has decided that he will stay. 2336: I spoke with Dr. Elias. We discussed the patient and his results. The patient will be further evaluated by Dr. Elias. Medical Decision This is a 37-year-old male presents with left-sided flank pain. Differential diagnosis includes kidney stone, hydronephrosis, UTI, pyelonephritis, diverticulitis, strain. I did perform a limited focused review of portions of the patient's old chart on the electronic medical record. The patient has had no recent pertinent visits to this hospital. I did evaluate the patient as noted above. IV access was established. I did treat the patient with morphine and Zofran IV. He also given normal saline IV. I did order and personally review the patient's urinalysis as described above. I did order and review the patient's blood work as noted in the electronic medical record. I did order a CT of the abdomen and pelvis. I did review the images myself as well as the radiology report as described above. He does have a 6 mm proximal ureteral stone with hydronephrosis. I did reassess patient. He had continued pain and was given Dilaudid IV. On reassessment he was still writhing in pain and given Toradol and Dilaudid IV again. On reassessment he is feeling better but still has persistent pain. After discussion with the patient and his family he felt he could not go home and adequately control his pain. I did discuss the case with the hospitalist and case management assistant. Medication Reconcilliation Current Medication List: was personally reviewed by me Blood Pressure Screening Patient's blood pressure: Elevated blood pressure Consults Time Called: [phone] Consulting Physician: Dr. Elias Returned Call: [phone] Elias. We discussed the patient and his results. The patient will be further evaluated by Dr. Elias. Impression Primary Impression: Renal colic Additional Impressions: Intractable pain Obstructive uropathy Scribe Attestation The scribe's documentation has been prepared under my direct and personally reviewed by me in its entirety. I confirm that the note above accurately reflects all work, treatment, procedures, and medical decision making performed by me. Departure Information Dispostion Being Evaluated By Hospitalist Referrals No Doctor, Assigned (PCP) Patient Instructions My [facility] Problem Qualifiers
[2017-07-21] MEDS ORDERED: ACETAMINOPHEN 325 MG TAB PO PRN (00:15)
[2017-07-21] MEDS: CEFTRIAXONE SOD INJ 1 GM in DEXTROSE 5% ADD-VANTAGE 50ML 50 ML IV SCH (00:15)
[2017-07-21] MEDS ORDERED: ACETAMINOPHEN IV 650 MG in EMPTY BAG 0 ML IV PRN (00:15)
[2017-07-21] MEDS ORDERED: HYDROmorphone INJ 0.5 MG/0.5 ML SYR IV PRN (00:15)
[2017-07-21] MEDS ORDERED: ONDANSETRON INJ 2 MG/ML 2 ML VIAL IV PRN (00:15)
[2017-07-21] MEDS ORDERED: TAMSULOSIN HCL 0.4 MG CAP PO STA (00:18)
[2017-07-21] MEDS ORDERED: CEFTRIAXONE SOD INJ 1 GM ADDVIAL ONE (00:50)
[2017-07-21 01:18] VITALS: BP 126/59; PULSE 65; TEMP 37; O2SAT 94; Ht 165.1 cm; Wt 92.2 kg
[2017-07-21] MEDS: LACTATED RINGER'S 1000ML 1,000 ML IV SCH ×5 (01:28→20:45)
[2017-07-21] MEDS: HYDROmorphone INJ 0.5 MG/0.5 ML SYR IV PRN ×5 (02:32→16:11)
[2017-07-21 07:20] VITALS: BP 123/78; PULSE 71; TEMP 37.2; O2SAT 93
[2017-07-21] MEDS: TAMSULOSIN HCL 0.4 MG CAP PO SCH ×2 (07:42→12:18)
--- NOTE | 2017-07-21 09:43 | DIAGNOSTIC IMAGING REPORT ---
KUB HISTORY: Ureteral stone follow-up study COMPARISON: CT abdomen and pelvis 07/20/2017 FINDINGS: The bowel gas pattern is non-obstructive. There is no organomegaly. The previously noted 5 x 4 mm calculus of the proximal left ureter is in unchanged positioning just inferior to the left transverse process of L3. Note that there are 6 nonrib-bearing lumbar type vertebral segments present. Phleboliths of the pelvis are redemonstrated. No pneumoperitoneum or pneumatosis. No fracture. IMPRESSION: Unchanged position of left proximal ureteral calculus. Electronically signed by: Robinson Murguia M.D. 07/21/2017 9:41 AM Dictated Date/Time: 07/21/2017 9:39 AM
[2017-07-21] MEDS: NICOTINE 14 MG/24 HR TDSY TD SCH (12:30)
[2017-07-21] MEDS: KETOROLAC TROMETHAMINE 30 MG/ML VIAL IV PRN ×2 (12:48→20:52)
[2017-07-21 15:19] VITALS: BP 114/73; PULSE 84; TEMP 36.8; O2SAT 92
[2017-07-21 16:30] VITALS: O2SAT 92
--- NOTE | 2017-07-21 17:26 | Progress Note ---
Subjective Date of Service: Jul 21, 2017. Subjective pt has some flank pain but much improved, did have small speck passed today in strainer but certainly not 6 mm that was seen on imaging Problem List Medical Problems: (1) Foot sprain Status: Acute (2) Intractable pain Status: Acute (3) Obstructive uropathy Status: Acute (4) Renal colic Status: Acute Review of Systems Constitutional: No fever, No chills, No weakness Respiratory: No cough, No shortness of breath, No dyspnea on exertion Cardiac: No chest pain, No edema Abdomen: + pain, + nausea Male : No urinary frequency, No incontinence Neurologic: No memory loss, No paralysis Psychiatric: No depression symptoms, No anhedonism Objective Vital Signs Date Time Temp Pulse Resp B/P (MAP) Pulse Ox O2 Delivery O2 Flow Rate FiO2 07/21/17 07:20 37.2 71 18 123/78 (93) 93 Room Air 07/21/17 01:18 Room Air 07/21/17 01:18 37.0 65 18 126/59 94 Room Air 07/21/17 00:50 63 16 128/70 94 07/20/17 22:44 78 22 131/78 96 Room Air 07/20/17 20:50 36.8 79 24 137/89 94 Room Air Physical Exam General Appearance: WD/WN, no apparent distress Eyes: PERRL, EOMI Respiratory/Chest: chest non-tender, lungs clear, normal breath sounds Cardiovascular: regular rate, rhythm, no murmur Abdomen: normal bowel sounds, non tender, soft Extremities: no pedal edema, no calf tenderness Neurologic/Psychiatric: alert, oriented x 3 Laboratory Results Last 24 Hours Test 07/20/17 20:58 07/20/17 21:09 Urine Color YELLOW Urine Appearance CLEAR Urine pH 5.5 Urine Specific [place] 1.017 Urine Protein NEG Urine Glucose (UA) NEG Urine Ketones NEG Urine Occult Blood NEG Urine Nitrite NEG Urine Bilirubin NEG Urine Urobilinogen NEG Urine Leukocyte Esterase TRACE Urine WBC (Auto) 1-5 /hpf Urine RBC (Auto) 5-10 /hpf Urine Hyaline Casts (Auto) 0 /lpf Urine Epithelial Cells (Auto) 0-5 /lpf Urine Bacteria (Auto) NEG White Blood Count 13.07 K/uL Red Blood Count 4.74 M/uL Hemoglobin 15.9 g/dL Hematocrit 44.3 % Mean Corpuscular Volume 93.5 fL Mean Corpuscular Hemoglobin 33.5 pg Mean Corpuscular Hemoglobin Concent 35.9 g/dl Platelet Count 281 K/uL Mean Platelet Volume 9.9 fL Neutrophils (%) (Auto) 49.3 % Lymphocytes (%) (Auto) 37.7 % Monocytes (%) (Auto) 9.2 % Eosinophils (%) (Auto) 2.8 % Basophils (%) (Auto) 0.7 % Neutrophils # (Auto) 6.45 K/uL Lymphocytes # (Auto) 4.93 K/uL Monocytes # (Auto) 1.20 K/uL Eosinophils # (Auto) 0.36 K/uL Basophils # (Auto) 0.09 K/uL RDW Standard Deviation 41.2 fL RDW Coefficient of Variation 12.0 % Immature Granulocyte % (Auto) 0.3 % Immature Granulocyte # (Auto) 0.04 K/uL Sodium Level 140 mmol/L Potassium Level 3.9 mmol/L Chloride Level 106 mmol/L Carbon Dioxide Level 27 mmol/L Anion Gap 7.0 mmol/L Blood Urea Nitrogen 13 mg/dl Creatinine 1.10 mg/dl Est Creatinine Clear Calc Drug Dose 94.1 ml/min Estimated GFR () 97.5 Estimated GFR (Non- 84.1 BUN/Creatinine Ratio 11.6 Random Glucose 84 mg/dl Calcium Level 9.3 mg/dl Total Bilirubin 0.7 mg/dl Direct Bilirubin 0.2 mg/dl Aspartate Amino Transf (AST/SGOT) 48 U/L Alanine Aminotransferase (ALT/SGPT) 94 U/L Alkaline Phosphatase 59 U/L Total Protein 7.5 gm/dl Albumin 4.1 gm/dl Lipase 38 U/L Assessment and Plan 37 year old healthy male admission for left nephrolithiasis with hydronephrosis Nephrolithiasis with left hydronephrosis confirmed by CT - HYdration, pain control -Urine culture, ceftriaxone given hydronephrosis - Consult urology - Dr Bauman, Hepatic steatosis- elevated transaminitis, VTE Prophylaxis chemical prophylaxis not indicated given young age and mobile. SCDs + TEDs
--- NOTE | 2017-07-21 17:55 | GENITOURINARY CONSULTATION ---
DATE OF CONSULTATION: 07/21/2017 REASON FOR THE CONSULT: Left ureteral stone. HISTORY OF PRESENTATION: The patient is a 37-year-old male with no previous history of stone disease, who had sudden onset of pain yesterday, came to the Emergency Room, had a noncontrast CT scan that showed a 4-5 mm proximal left renal stone. The patient was admitted overnight, had a KUB this morning that confirms position of the stone and has not changed. The patient is having ongoing pain that is moderately well controlled with narcotics. He denies any fever. He has no previous history of stone disease. He has not had emesis at this time. He does have referred pain to his left testicle. PAST MEDICAL HISTORY: Significant for cataract surgery. He denies any history of coronary artery disease, hypertension or diabetes. SOCIAL HISTORY: He denies any medical usage. He does smoke tobacco, 4-5 cigarettes a day. Denies alcohol use. ALLERGIES: He has no known drug allergies. PHYSICAL EXAMINATION: VITAL SIGNS: Stable. HEENT: Unremarkable. He does have a history of cataract surgery, but nothing on physical exam. NECK: Without adenopathy. He has no respiratory distress. EXTREMITIES: He has no evidence of pedal edema. Extremities are unremarkable. SKIN: Unremarkable. NEUROLOGIC: He is alert and oriented without obvious focal or sensory deficits. White blood cell count is within normal limits. Creatinine is also within normal limits. Urinalysis: There was trace leukocytosis but 5-10 red cells and no bacteria. ASSESSMENT: Proximal left renal stone. I had a long discussion with the patient and then a second discussion with the patient and his that lasted face to face 45 minutes, which time I was counseling the patient and his regarding possible options, etiology of kidney stones, pathophysiology of kidney stones, why they cause pain, the specific options of the stone passing and his current options. As I see it, I told the patient he had 5 options. One would be to proceed with a stent placement today. I did not feel that on a Saturday, that doing ureteroscopy for a proximal stone was realistic and that if we did stent for proximal stone, that he would be having lithotripsy with a 70% chance of success fragmenting the stone into small pieces on a Saturday. Second option was to continue observation as he is having ongoing pain and make a final decision regarding disposition in the morning. In the morning, if his pain had resolved, he had the option of going home to have elective ESWL this Saturday. If the pain was ongoing, but had moved to the distal ureter, then ureteroscopy might be offered depending upon the choice of the physician etl consultant tomorrow. If it has not advanced he would be eligible stent again, it would still be eligible for lithotripsy. Lastly, the stone might pass spontaneously, although given the size between 4 and 5 mm there is les than a 50% chance. The patient and his understood all the options and have elected to continue observation until tomorrow morning. I will get a KUB in the morning and will order Toradol in the interim and we will allow the patient to eat in the interim. ETELVINAD
[2017-07-21] MEDS: DOCUSATE SODIUM 100 MG CAP PO SCH (20:45)
[2017-07-21] MEDS: ZOLPIDEM TARTRATE 5 MG TAB PO PRN (20:50)
[2017-07-21 23:09] VITALS: BP 102/67; PULSE 66; TEMP 37.4; O2SAT 92
[2017-07-22] VITALS (9 sets, daily range): BP systolic 104–126; BP diastolic 68–86; PULSE 64–78; TEMP 36.6–37.3; O2SAT 91–96
[2017-07-22] MEDS: CEFTRIAXONE SOD INJ 1 GM in DEXTROSE 5% ADD-VANTAGE 50ML 50 ML IV SCH ×2 (00:14→23:35)
[2017-07-22] MEDS: HYDROmorphone INJ 0.5 MG/0.5 ML SYR IV PRN ×3 (00:15→09:10)
[2017-07-22] MEDS: LACTATED RINGER'S 1000ML 1,000 ML IV SCH ×5 (02:27→21:54)
[2017-07-22] MEDS: KETOROLAC TROMETHAMINE 30 MG/ML VIAL IV PRN (03:23)
[2017-07-22] MEDS ORDERED: CIPROFLOXACIN / D5W 400 MG IV SCH (06:00)
--- NOTE | 2017-07-22 06:56 | DIAGNOSTIC IMAGING REPORT ---
KUB CLINICAL HISTORY: ureteral stone COMPARISON STUDY: 07/21/2017 FINDINGS: There is no pathologic bowel dilatation. There is no change in the position of the 5 mm proximal left ureteral calculus. No renal calculi are visualized. Multiple pelvic basin calcifications remain stable. These likely represent phleboliths. IMPRESSION: No change in the position of the 5 mm proximal left ureteral calculus. Electronically signed by: Vasiliy Villatoro M.D. 07/22/2017 6:54 AM Dictated Date/Time: 07/22/2017 6:53 AM
[2017-07-22 08:14] LABS: BASO % 0.5 %; BASO ABS # 0.05 K/uL (0-0.2); COMPLETE YES; EOS % 2.8 %; HEMATOCRIT 41.5 % (42-52); IG% 0.2 %; LYMPH % 40.4 %; LYMPH ABS # 3.85 K/uL (1.2-3.4); MEAN CELL VOLUME 96.5 fL (80-100); MEAN CORPUSCULAR HEMOGLOBIN 31.6 pg (25-34); MEAN CORPUSCULAR HGB CONC 32.8 g/dl (32-36); MEAN PLATELET VOLUME 9.7 fL (7.4-10.4); MONO % 9.3 %; NEUT % 46.8 %; PLATELET COUNT 241 K/uL (130-400); WHITE BLOOD COUNT 9.54 K/uL (4.8-10.8)
[2017-07-22] MEDS ORDERED: CIPROFLOXACIN 400MG / 200ML D5W IV ONE (08:30)
[2017-07-22 08:40] LABS: BUN/CREATININE RATIO 8.6 (10-20); CALCIUM 8.3 mg/dl (8.5-10.1); CREATININE 1.3 mg/dl (0.60-1.40); POTASSIUM 3.6 mmol/L (3.5-5.1)
--- NOTE | 2017-07-22 08:59 | DIAGNOSTIC IMAGING REPORT ---
CHEST 2 VIEWS ROUTINE HISTORY: pre-op COMPARISON: None. FINDINGS: The lungs are clear. Cardiac silhouette is normal in size. No pleural effusions. No pneumothorax. IMPRESSION: No acute process. Electronically signed by: Gerry Ku M.D. 07/22/2017 8:58 AM Dictated Date/Time: 07/22/2017 8:56 AM
[2017-07-22] MEDS ORDERED: NO NSAIDS PRN (09:00)
--- NOTE | 2017-07-22 09:05 | Progress Note ---
Subjective Date of Service: Jul 22, 2017. Subjective Pt evaluation today including: conversation w/ patient, chart review, lab review Voiding: no voiding problems 37 yo male with 5mm proximal left ureteral stone. The pt c/o left flank pain 6/10 this morning. Denies n/v. Denies dysuria or hematuria. The stone is visualized on KUB this morning. Problem List Medical Problems: (1) Foot sprain Status: Acute (2) Intractable pain Status: Acute (3) Obstructive uropathy Status: Acute (4) Renal colic Status: Acute Review of Systems Constitutional: No fever, No chills Respiratory: No shortness of breath Cardiac: No chest pain Abdomen: + pain (left flank pain ), No nausea, No vomiting Male : No dysuria, No hematuria Heme: No abnormal bleeding/bruising Objective Vital Signs Date Time Temp Pulse Resp B/P (MAP) Pulse Ox O2 Delivery O2 Flow Rate FiO2 07/22/17 07:49 93 Room Air 07/22/17 07:39 36.8 70 16 124/82 (96) 93 Room Air 07/22/17 02:25 36.6 07/22/17 00:00 Room Air 07/21/17 23:09 37.4 66 16 102/67 (79) 92 Room Air 07/21/17 16:30 92 Room Air 07/21/17 15:19 36.8 84 17 114/73 (87) 92 Room Air Physical Exam General Appearance: no apparent distress Eyes: normal inspection ENT: hearing grossly normal Neck: no JVD Respiratory/Chest: no respiratory distress, no accessory muscle use Cardiovascular: no JVD Extremities: normal inspection Neurologic/Psychiatric: alert, normal mood/affect, oriented x 3 Skin: normal color Laboratory Results Last 24 Hours Test 07/22/17 07:54 White Blood Count 9.54 K/uL Red Blood Count 4.30 M/uL Hemoglobin 13.6 g/dL Hematocrit 41.5 % Mean Corpuscular Volume 96.5 fL Mean Corpuscular Hemoglobin 31.6 pg Mean Corpuscular Hemoglobin Concent 32.8 g/dl Platelet Count 241 K/uL Mean Platelet Volume 9.7 fL Neutrophils (%) (Auto) 46.8 % Lymphocytes (%) (Auto) 40.4 % Monocytes (%) (Auto) 9.3 % Eosinophils (%) (Auto) 2.8 % Basophils (%) (Auto) 0.5 % Neutrophils # (Auto) 4.46 K/uL Lymphocytes # (Auto) 3.85 K/uL Monocytes # (Auto) 0.89 K/uL Eosinophils # (Auto) 0.27 K/uL Basophils # (Auto) 0.05 K/uL RDW Standard Deviation 42.8 fL RDW Coefficient of Variation 12.1 % Immature Granulocyte % (Auto) 0.2 % Immature Granulocyte # (Auto) 0.02 K/uL Sodium Level 142 mmol/L Potassium Level 3.6 mmol/L Chloride Level 106 mmol/L Carbon Dioxide Level 28 mmol/L Anion Gap 8.0 mmol/L Blood Urea Nitrogen 11 mg/dl Creatinine 1.30 mg/dl Est Creatinine Clear Calc Drug Dose 79.6 ml/min Estimated GFR () 79.7 Estimated GFR (Non- 68.7 BUN/Creatinine Ratio 8.6 Random Glucose 85 mg/dl Calcium Level 8.3 mg/dl Assessment and Plan A/P: 5mm proximal left ureteral stone AFVSS. Pt with persistent left flank pain. I have again discussed tx options with the pt this morning. He prefers a cysto and left ureteral stent placement today with Dr. Herrera. Risks and benefits of the procedure discussed with the pt. All questions answered. Pt agrees to the procedure at this time. Consent obtained. Will obtain a pre-op chest x-ray and EKG. Will then plan for outpatient ESWL either this Saturday or next week for definitive stone management. The stone is well visualized on KUB. Will continue to follow along with primary service at this time. Continued [facility] stay due to: inadequate oral pain control
[2017-07-22] MEDS ORDERED: ONDANSETRON INJ 2 MG/ML 2 ML VIAL ONE (09:34)
[2017-07-22] MEDS ORDERED: LIDOCAINE HCL 2% 2 ML VIAL (20MG/ML) ONE (09:34)
[2017-07-22] MEDS ORDERED: PROPOFOL IV EMULSION 10 MG/ML 20 ML VIAL IV ONE (09:34)
[2017-07-22] MEDS ORDERED: MIDAZOLAM HCL 1 MG/ML 2ML VIAL ONE (09:34)
[2017-07-22] MEDS ORDERED: FENTANYL CITRATE INJ 50 MCG/1 ML 2 ML VIAL ONE ×2 (09:35→10:30)
[2017-07-22] MEDS ORDERED: CONRAY 30% 150ML BOTTLE ONE (10:15)
[2017-07-22] MEDS ORDERED: PROMETHAZINE HCL INJ 12.5 MG in SODIUM CHLORIDE 0.9% 50ML 50 ML IV PRN (10:30)
[2017-07-22] MEDS ORDERED: HYDROmorphone INJ 1 MG/ML SYR IV PRN (10:30)
[2017-07-22] MEDS ORDERED: FLUMAZENIL 0.1 MG/1 ML 10 ML VIAL IV PRN (10:30)
[2017-07-22] MEDS ORDERED: ONDANSETRON INJ 2 MG/ML 2 ML VIAL IV PRN (10:30)
[2017-07-22] MEDS ORDERED: NALOXONE HCL 0.4 MG/1 ML VIAL/CARP IV PRN (10:30)
[2017-07-22] MEDS ORDERED: EpHEDrine SULFATE INJ 50 MG/ML AMP IV PRN (10:30)
[2017-07-22] MEDS ORDERED: ATROPINE SULFATE 0.1 MG/ML 5ML SYR IV PRN (10:30)
--- NOTE | 2017-07-22 11:04 | [facility] Operative Report ---
Operative Report Operative Date Jul 22, 2017. Pre-Operative Diagnosis Left Ureteral Stone Post-Operative Diagnosis Left Ureteral Stone Procedure(s) Performed Cystoscopy Retrograde; Left Stent Placement Surgeon Dr. Mohit Herrera Retail Sales Representative Surgeon(s) none Estimated Blood Loss 0ml Findings Cystoscopy showed a normal anterior urethra prostatic fossa was nonobstructing bladder showed no mucosal abnormalities retrograde showed a stone in the mid left ureter Specimens none per surgeon Dr. Mohit Herrera Drains 6 Amharic by 26 cm left ureteral stent Anesthesia Gen. Complication(s) None Disposition Recovery Room / PACU Indications 37-year-old white male admitted to the hospital with left renal colic secondary to a 5 mm mid left ureteral stone. Patient is being brought down for stent placement Description of Procedure After the induction of an adequate general anesthetic and appropriate timeout. Patient was placed in the dorsal lithotomy position. Lower abdomen genitalia were prepped with Hibiclens and draped in a sterile fashion. Using a 22 Amharic cystoscope routine cystoscopic exam was performed with the 30 and 70 lenses with the above-noted findings. Next using a 5 Amharic Pollack catheter left retrograde was performed. Then through the Pollack catheter 0.03 guidewire was negotiated up the left ureter to position the renal pelvis confirmed by fluoroscopy. Pollack catheter is removed and a 6 Amharic by 26 cm left ureteral stent was passed over the guidewire under fluoroscopic guidance to position in the renal pelvis. Guidewire was removed. There was a good curl at the bladder level. Patient's bladder was then drained. Cystoscope and sheath removed. All needle sponge and instrument counts were correct at the end of the case. Patient tolerated the procedure well and was taken to the recovery room in stable condition I attest to the content of the Intraoperative Record and any orders documented therein. Any exceptions are noted below.
--- NOTE | 2017-07-22 11:13 | DIAGNOSTIC IMAGING REPORT ---
Radiology RETROGRADE INCLUDES KUB CLINICAL HISTORY: 37 years-old Male presenting with LEFT STENT PLACEMENT. TECHNIQUE: 4 fluoroscopic spot image(s) obtained as part of an intraoperative procedure. COMPARISON: Plain radiograph of the abdomen from 07/22/2017. FINDINGS/IMPRESSION: A catheter was introduced into the distal left ureter. Progressive opacification of the left ureter. Filling defect in the proximal left ureter suggested. A guidewire was passed into the left renal collecting system. Opacification of the left renal collecting system without evidence of dilatation. A left ureteral stent was placed at the conclusion of the procedure. Please see surgical report for further details. Fluoroscopy dosage (mGy): Not available. Fluoroscopy time: 17 seconds. Number of fluoroscopic spot images: 4. Electronically signed by: Bruce Richter M.D. 07/22/2017 11:12 AM Dictated Date/Time: 07/22/2017 11:11 AM
--- NOTE | 2017-07-22 11:23 | Anesthesiology Progress Note ---
Anesthesia Post Op Note Date & Time Jul 22, 2017 at 11:23 Vital Signs Pain Intensity: 0 Vital Signs Past 12 Hours Date Time Temp Pulse Resp B/P (MAP) Pulse Ox O2 Delivery O2 Flow Rate FiO2 07/22/17 11:16 37.6 69 19 114/66 96 Nasal Cannula 2 07/22/17 11:02 70 18 07/22/17 11:02 70 18 96 07/22/17 11:01 120/66 07/22/17 10:57 76 18 98 07/22/17 10:57 77 18 07/22/17 10:56 122/64 07/22/17 10:52 77 19 07/22/17 10:52 77 19 96 07/22/17 10:51 122/61 07/22/17 10:47 37.0 82 16 120/66 97 Mask 10 07/22/17 10:47 79 22 119/69 97 07/22/17 10:47 81 22 07/22/17 09:40 37.0 72 20 138/99 (112) 95 Room Air 07/22/17 08:00 Room Air 07/22/17 07:49 93 Room Air 07/22/17 07:39 36.8 70 16 124/82 (96) 93 Room Air 07/22/17 02:25 36.6 07/22/17 00:00 Room Air Notes Mental Status: alert / awake / arousable, participated in evaluation Pt Amnestic to Procedure: Yes Nausea / Vomiting: adequately controlled Pain: adequately controlled Airway Patency, RR, SpO2: stable & adequate BP & HR: stable & adequate Hydration State: stable & adequate Anesthetic Complications: no major complications apparent
[2017-07-22] MEDS: NICOTINE 14 MG/24 HR TDSY TD SCH (12:41)
[2017-07-22] MEDS: TAMSULOSIN HCL 0.4 MG CAP PO SCH (12:41)
[2017-07-22] MEDS: DOCUSATE SODIUM 100 MG CAP PO SCH ×2 (12:41→20:54)
[2017-07-22] MEDS ORDERED: POLYETHYLENE (MIRALAX) 17 GM PACK PO ONE (12:45)
[2017-07-22] MEDS ORDERED: POLYETHYLENE (MIRALAX) 17 GM PACK PO PRN (12:45)
--- NOTE | 2017-07-22 16:11 | Medical Student: [facility] ---
Med Student Progress Note Date of Service Jul 22, 2017. Subjective Pt evaluation today including: conversation w/ patient, conversation w/ family , physical exam, chart review, lab review, review of studies, review of inpatient medication list Pain: moderate pain PO Intake: normal This is 37 yoM with no significant hx presented 2 days ago with left sided back pain, fever and chills. CT showed 6mm calculus and left hydronephrosis. Today, he states that he no longer has pain in left-sided back for 1 day, but have pain on the left side abdomen. Pt feels "constipated" and did not have BM for 2 days. Denies fever, N/V, dysuria or voiding difficulty. Able to ambulate. Review of Systems Constitutional: No fever, No chills Respiratory: No shortness of breath Cardiac: No chest pain Abdomen: + pain (left) Musculoskeletal: No joint pain Objective Vital Signs Date Time Temp Pulse Resp B/P (MAP) Pulse Ox O2 Delivery O2 Flow Rate FiO2 07/22/17 14:42 18 126/86 (99) 96 07/22/17 13:34 37.2 78 18 107/68 (81) 91 Room Air 07/22/17 12:31 36.9 72 16 116/74 (88) 96 Nasal Cannula 2.0 07/22/17 12:01 37.0 64 18 114/75 (88) 96 Nasal Cannula 2.0 07/22/17 11:30 94 Nasal Cannula 2.0 07/22/17 11:30 37.1 66 16 114/75 (88) 94 Nasal Cannula 2.0 07/22/17 11:16 37.6 69 19 114/66 96 Nasal Cannula 2 07/22/17 11:02 70 18 07/22/17 11:02 70 18 96 07/22/17 11:01 120/66 07/22/17 10:57 76 18 98 07/22/17 10:57 77 18 07/22/17 10:56 122/64 07/22/17 10:52 77 19 07/22/17 10:52 77 19 96 07/22/17 10:51 122/61 07/22/17 10:47 37.0 82 16 120/66 97 Mask 10 07/22/17 10:47 79 22 119/69 97 07/22/17 10:47 81 22 07/22/17 09:40 37.0 72 20 138/99 (112) 95 Room Air 07/22/17 08:00 Room Air 07/22/17 07:49 93 Room Air 07/22/17 07:39 36.8 70 16 124/82 (96) 93 Room Air 07/22/17 02:25 36.6 07/22/17 00:00 Room Air 07/21/17 23:09 37.4 66 16 102/67 (79) 92 Room Air 07/21/17 16:30 92 Room Air Physical Exam General Appearance: + mild distress Eyes: bilateral eyes normal inspection ENT: hearing grossly normal Respiratory/Chest: lungs clear, normal breath sounds, no respiratory distress Cardiovascular: regular rate, rhythm, no edema, no murmur Abdomen: normal bowel sounds, + distended (mildly), + tenderness (left side) Extremities: normal range of motion, no pedal edema Neurologic/Psychiatric: alert, normal mood/affect, oriented x 3 Laboratory Results Last 24 Hours Test 07/22/17 07:54 White Blood Count 9.54 K/uL Red Blood Count 4.30 M/uL Hemoglobin 13.6 g/dL Hematocrit 41.5 % Mean Corpuscular Volume 96.5 fL Mean Corpuscular Hemoglobin 31.6 pg Mean Corpuscular Hemoglobin Concent 32.8 g/dl Platelet Count 241 K/uL Mean Platelet Volume 9.7 fL Neutrophils (%) (Auto) 46.8 % Lymphocytes (%) (Auto) 40.4 % Monocytes (%) (Auto) 9.3 % Eosinophils (%) (Auto) 2.8 % Basophils (%) (Auto) 0.5 % Neutrophils # (Auto) 4.46 K/uL Lymphocytes # (Auto) 3.85 K/uL Monocytes # (Auto) 0.89 K/uL Eosinophils # (Auto) 0.27 K/uL Basophils # (Auto) 0.05 K/uL RDW Standard Deviation 42.8 fL RDW Coefficient of Variation 12.1 % Immature Granulocyte % (Auto) 0.2 % Immature Granulocyte # (Auto) 0.02 K/uL Sodium Level 142 mmol/L Potassium Level 3.6 mmol/L Chloride Level 106 mmol/L Carbon Dioxide Level 28 mmol/L Anion Gap 8.0 mmol/L Blood Urea Nitrogen 11 mg/dl Creatinine 1.30 mg/dl Est Creatinine Clear Calc Drug Dose 79.6 ml/min Estimated GFR () 79.7 Estimated GFR (Non- 68.7 BUN/Creatinine Ratio 8.6 Random Glucose 85 mg/dl Calcium Level 8.3 mg/dl Medications Current Inpatient Medications Medications (Trade) Dose Ordered Sig/Tato Route Start Time Stop Time Status Last Admin Dose Admin Tamsulosin HCl (Flomax Cap) 0.4 mg QAM PO 07/21/17 09:00 08/20/17 08:59 07/22/17 12:41 0.4 MG Acetaminophen (Tylenol Tab) 650 mg Q4H PRN PO 07/21/17 00:15 08/20/17 00:14 Ondansetron HCl (Zofran Inj) 4 mg Q6H PRN IV 07/21/17 00:15 08/20/17 00:14 Acetaminophen 650 mg/Empty Bag 65 ml @ 260 mls/hr Q6H PRN IV 07/21/17 00:15 08/20/17 00:14 Ceftriaxone Sodium 1 gm/ Dextrose 50 ml @ 100 mls/hr Q24H IV 07/21/17 00:15 07/31/17 00:14 07/22/17 00:14 100 MLS/HR Lactated Ringer's 1,000 ml @ 200 mls/hr Q5H IV 07/21/17 01:30 08/20/17 01:29 07/22/17 12:41 200 MLS/HR Hydromorphone HCl (Dilaudid Inj) 0.5 mg Q2H PRN IV 07/21/17 02:15 08/04/17 00:14 07/22/17 09:10 0.5 MG Zolpidem Tartrate (Ambien Tab) 5 mg HS PRN PO 07/21/17 00:45 08/20/17 00:44 07/21/17 20:50 5 MG Nicotine (Nicoderm Cq 14MG Patch) 1 patch QAM TD 07/21/17 09:00 08/20/17 08:59 Miscellaneous (Remove Nicoderm Patch) 1 ea HS N/A 07/21/17 21:00 08/20/17 20:59 Docusate Sodium (coLACE CAP) 100 mg BID PO 07/21/17 21:00 08/20/17 20:59 07/22/17 12:41 100 MG Ciprofloxacin/ Dextrose 200 ml @ 100 mls/hr PREOP IV 07/22/17 06:00 07/22/17 18:00 07/22/17 10:18 100 MLS/HR Miscellaneous Medication (No Nsaids) 1 ea PRN PRN N/A 07/22/17 09:00 08/21/17 08:59 Polyethylene (Miralax Powder Packet) 17 gm DAILY PRN PO 07/22/17 12:45 08/21/17 12:44 Assessment and Plan Assessment and Plan: This is 37 yo M with no significant PMH presented with left sided back pain. Nephrolithiasis - KUB X-ray (07/22) - no change in stone position (5mm stones) - Urology consulted. Pt opted for stenting today and ESWL on Saturday. - No signs of UTI - neg urine culture. Hepatic steatosis - Abd/Pelvic CT - hepatic steatosis - Mildly elevated AST and ALT - Monitor DVT prophylaxis - Pt can ambulate - SCD.
--- NOTE | 2017-07-22 19:09 | Progress Note ---
Subjective Date of Service: Jul 22, 2017. Subjective Patient feels improved post procedure is still slightly sedate nauseous by mouth intake is variable pain is slight Problem List Medical Problems: (1) Foot sprain Status: Acute (2) Intractable pain Status: Acute (3) Obstructive uropathy Status: Acute (4) Renal colic Status: Acute Review of Systems Constitutional: No fever Respiratory: No cough, No sputum, No wheezing, No shortness of breath Cardiac: No chest pain, No PND, No edema Abdomen: + pain, + nausea, No vomiting, No diarrhea Musculoskeletal: No joint pain, No muscle pain Psychiatric: No depression symptoms, No anhedonism Objective Vital Signs Date Time Temp Pulse Resp B/P (MAP) Pulse Ox O2 Delivery O2 Flow Rate FiO2 07/22/17 14:42 18 126/86 (99) 96 07/22/17 13:34 37.2 78 18 107/68 (81) 91 Room Air 07/22/17 12:31 36.9 72 16 116/74 (88) 96 Nasal Cannula 2.0 07/22/17 12:01 37.0 64 18 114/75 (88) 96 Nasal Cannula 2.0 07/22/17 11:30 94 Nasal Cannula 2.0 07/22/17 11:30 37.1 66 16 114/75 (88) 94 Nasal Cannula 2.0 07/22/17 11:16 37.6 69 19 114/66 96 Nasal Cannula 2 07/22/17 11:02 70 18 07/22/17 11:02 70 18 96 07/22/17 11:01 120/66 07/22/17 10:57 76 18 98 07/22/17 10:57 77 18 07/22/17 10:56 122/64 07/22/17 10:52 77 19 07/22/17 10:52 77 19 96 07/22/17 10:51 122/61 07/22/17 10:47 37.0 82 16 120/66 97 Mask 10 07/22/17 10:47 79 22 119/69 97 07/22/17 10:47 81 22 07/22/17 09:40 37.0 72 20 138/99 (112) 95 Room Air 07/22/17 08:00 Room Air 07/22/17 07:49 93 Room Air 07/22/17 07:39 36.8 70 16 124/82 (96) 93 Room Air 07/22/17 02:25 36.6 07/22/17 00:00 Room Air 07/21/17 23:09 37.4 66 16 102/67 (79) 92 Room Air Physical Exam General Appearance: WD/WN, + mild distress Eyes: PERRL, EOMI Neck: supple, no adenopathy, no JVD Respiratory/Chest: chest non-tender, lungs clear, normal breath sounds Cardiovascular: regular rate, rhythm, no JVD Abdomen: + abnormal bowel sounds, + guarding, + tenderness Extremities: no pedal edema, no calf tenderness Laboratory Results Last 24 Hours Test 07/22/17 07:54 White Blood Count 9.54 K/uL Red Blood Count 4.30 M/uL Hemoglobin 13.6 g/dL Hematocrit 41.5 % Mean Corpuscular Volume 96.5 fL Mean Corpuscular Hemoglobin 31.6 pg Mean Corpuscular Hemoglobin Concent 32.8 g/dl Platelet Count 241 K/uL Mean Platelet Volume 9.7 fL Neutrophils (%) (Auto) 46.8 % Lymphocytes (%) (Auto) 40.4 % Monocytes (%) (Auto) 9.3 % Eosinophils (%) (Auto) 2.8 % Basophils (%) (Auto) 0.5 % Neutrophils # (Auto) 4.46 K/uL Lymphocytes # (Auto) 3.85 K/uL Monocytes # (Auto) 0.89 K/uL Eosinophils # (Auto) 0.27 K/uL Basophils # (Auto) 0.05 K/uL RDW Standard Deviation 42.8 fL RDW Coefficient of Variation 12.1 % Immature Granulocyte % (Auto) 0.2 % Immature Granulocyte # (Auto) 0.02 K/uL Sodium Level 142 mmol/L Potassium Level 3.6 mmol/L Chloride Level 106 mmol/L Carbon Dioxide Level 28 mmol/L Anion Gap 8.0 mmol/L Blood Urea Nitrogen 11 mg/dl Creatinine 1.30 mg/dl Est Creatinine Clear Calc Drug Dose 79.6 ml/min Estimated GFR () 79.7 Estimated GFR (Non- 68.7 BUN/Creatinine Ratio 8.6 Random Glucose 85 mg/dl Calcium Level 8.3 mg/dl Assessment and Plan 37 year old healthy male admission for left nephrolithiasis with hydronephrosis 6 mm stone will not likely passed by itself Nephrolithiasis with left hydronephrosis confirmed by CT - 6 mm stone stent placed plan on outpatient lithotripsy continue HYdration, pain control -Urine culture, ceftriaxone given hydronephrosis initial culture showing pinpoint growth -We'll follow-up with urology Hepatic steatosis- elevated transaminitis, recommended dietary modification the future VTE Prophylaxis chemical prophylaxis. SCDs + TEDs
[2017-07-22] MEDS: ZOLPIDEM TARTRATE 5 MG TAB PO PRN (21:54)
[2017-07-23] MEDS: LACTATED RINGER'S 1000ML 1,000 ML IV SCH ×3 (03:16→13:30)
[2017-07-23 03:27] VITALS: BP 120/82; PULSE 79; TEMP 37; O2SAT 92
[2017-07-23 07:23] VITALS: BP 131/82; PULSE 72; TEMP 36.9; O2SAT 92
[2017-07-23] MEDS ORDERED: OXYC-57 PO (08:18)
[2017-07-23] MEDS ORDERED: ONDA4TAB65 PO (08:18)
--- NOTE | 2017-07-23 08:18 | Discharge Instructions ---
Discharge Instructions Date of Service Jul 23, 2017. Admission Reason for Admission: Hydronephrosis Left Kidney, Left Nephrolithiasis, Discharge Discharge Diagnosis / Problem: renal colic s/p stent Discharge Goals Goal(s): Diagnostic testing, Therapeutic intervention Activity Recommendations Activity Limitations: resume your previous activity . Current Hospital Diet Patient's current hospital diet: Regular Diet Discharge Diet Recommended Diet: Regular Diet Procedures Procedures Performed: Cystoscopy Retrograde; Left Stent Placement Pending Studies Studies pending at discharge: no Medical Emergencies . Who to Call and When: Medical Emergencies: If at any time you feel your situation is an emergency, please call 911 immediately. . Non-Emergent Contact Non-Emergency issues call your: Urologist Call Non-Emergent contact if: temperature is above 101, your pain is unusual for you . . "Provider Documentation" section prepared by Neno Desai. . VTE Core Measure Inpt VTE Proph given/why not?: Meli Stockings, SCD's, Treatment not indicated [place] Drug Monitoring Program Search Results: patient reviewed within database
[2017-07-23] MEDS: TAMSULOSIN HCL 0.4 MG CAP PO SCH (08:58)
[2017-07-23] MEDS: DOCUSATE SODIUM 100 MG CAP PO SCH (08:59)
[2017-07-23] MEDS: NICOTINE 14 MG/24 HR TDSY TD SCH (08:59)
[2017-07-23 12:22] VITALS: BP 138/87; PULSE 60; TEMP 37; O2SAT 96
[2017-07-23 12:56] VITALS: BP 138/87; PULSE 60; TEMP 37; O2SAT 96
--- NOTE | 2017-07-23 14:26 | Medical Student: [facility] ---
Med Student Progress Note Date of Service Jul 23, 2017. Subjective Pt evaluation today including: conversation w/ patient, physical exam, chart review, lab review, review of studies, review of inpatient medication list Pain: none PO Intake: normal Voiding: no voiding problems, no incontinence This is 37 yoM with no significant hx presented 3 days ago with left sided back pain, fever and chills. CT showed 6mm calculus and left hydronephrosis. He has no pain. Mild discomfort with urination but getting better each time. Couple BM yesterday and today. Denies fever, N/V, dysuria or voiding difficulty. Pt feels fine and ambulate without difficulties. Review of Systems Constitutional: No fever, No chills Respiratory: No shortness of breath, No dyspnea on exertion Cardiac: No chest pain Abdomen: No pain, No nausea, No vomiting Male : + dysuria (mild), No incontinence Objective Vital Signs Date Time Temp Pulse Resp B/P (MAP) Pulse Ox O2 Delivery O2 Flow Rate FiO2 07/23/17 12:56 37.0 60 16 96 Room Air 07/23/17 12:22 37.0 60 16 138/87 (104) 96 Room Air 07/23/17 08:10 Room Air 07/23/17 07:23 36.9 72 16 131/82 (98) 92 Room Air 07/23/17 03:27 37.0 79 14 120/82 (95) 92 Room Air 07/22/17 23:00 37.3 72 16 104/71 (82) 93 Room Air 07/22/17 19:20 Room Air 07/22/17 14:42 18 126/86 (99) 96 Physical Exam General Appearance: WD/WN, no apparent distress Eyes: bilateral eyes normal inspection ENT: hearing grossly normal Neck: supple Respiratory/Chest: lungs clear, normal breath sounds, no respiratory distress, no accessory muscle use Cardiovascular: regular rate, rhythm, no murmur Abdomen: normal bowel sounds, non tender, soft Extremities: normal inspection Neurologic/Psychiatric: alert, normal mood/affect, oriented x 3 Medications Current Inpatient Medications Medications (Trade) Dose Ordered Sig/Tato Route Start Time Stop Time Status Last Admin Dose Admin Tamsulosin HCl (Flomax Cap) 0.4 mg QAM PO 07/21/17 09:00 08/20/17 08:59 07/23/17 08:58 0.4 MG Acetaminophen (Tylenol Tab) 650 mg Q4H PRN PO 07/21/17 00:15 08/20/17 00:14 Ondansetron HCl (Zofran Inj) 4 mg Q6H PRN IV 07/21/17 00:15 08/20/17 00:14 Acetaminophen 650 mg/Empty Bag 65 ml @ 260 mls/hr Q6H PRN IV 07/21/17 00:15 08/20/17 00:14 Ceftriaxone Sodium 1 gm/ Dextrose 50 ml @ 100 mls/hr Q24H IV 07/21/17 00:15 07/31/17 00:14 07/22/17 23:35 100 MLS/HR Lactated Ringer's 1,000 ml @ 200 mls/hr Q5H IV 07/21/17 01:30 08/20/17 01:29 07/23/17 08:57 200 MLS/HR Hydromorphone HCl (Dilaudid Inj) 0.5 mg Q2H PRN IV 07/21/17 02:15 08/04/17 00:14 07/22/17 09:10 0.5 MG Zolpidem Tartrate (Ambien Tab) 5 mg HS PRN PO 07/21/17 00:45 08/20/17 00:44 07/22/17 21:54 5 MG Nicotine (Nicoderm Cq 14MG Patch) 1 patch QAM TD 07/21/17 09:00 08/20/17 08:59 Miscellaneous (Remove Nicoderm Patch) 1 ea HS N/A 07/21/17 21:00 08/20/17 20:59 Docusate Sodium (coLACE CAP) 100 mg BID PO 07/21/17 21:00 08/20/17 20:59 07/22/17 20:54 100 MG Miscellaneous Medication (No Nsaids) 1 ea PRN PRN N/A 07/22/17 09:00 08/21/17 08:59 Polyethylene (Miralax Powder Packet) 17 gm DAILY PRN PO 07/22/17 12:45 08/21/17 12:44 Assessment and Plan Assessment and Plan: This is 37 yo M with no significant PMH presented with left sided back pain. Nephrolithiasis - 6mm stone - stenting (07/22). ESWL (07/26). Stent removal (08/06) - No signs of UTI - neg urine culture. Hepatic steatosis - Abd/Pelvic CT - hepatic steatosis - Mildly elevated AST and ALT - Monitor DVT prophylaxis - Pt can ambulate - SCD. Discharge planning: home
--- NOTE | 2017-07-23 19:07 | Discharge Summary ---
Discharge Summary Date of Service Jul 23, 2017. Discharge Summary Admission Date: Jul 20, 2017 at 23:54 Discharge Date: Jul 23, 2017 Discharge Disposition: Home Principal Diagnosis: left renal stone status post stenting Immunizations: Have You Had Influenza Vaccine: Unknown History of Tetanus Vaccine?: Unknown History of Pneumococcal: No History of Hepatitis B Vaccine: Unknown Medication Reconciliation New Medications: Ondansetron Hcl (Zofran) 4 Mg Tab 4 MG PO PRN, #20 TAB Oxycodone/Acetaminophen 5MG/325MG (Percocet 5MG/325MG) Tab 1-2 TABLETS PO Q6 PRN for Pain, #20 TAB Discharge Exam Review of Systems: Constitutional: No fever, No chills, No sweats Abdomen: No pain, No nausea, No vomiting Physical Exam: General Appearance: WD/WN, no apparent distress Eyes: PERRL, EOMI Abdomen / GI: non tender, soft Hospital Course 37 year old healthy male admission for left nephrolithiasis with hydronephrosis 6 mm stone will not likely passed by itself Nephrolithiasis with left hydronephrosis confirmed by CT - 6 mm stone stent placed, plan on outpatient lithotripsy will follow up with urology -Urine culture negative we'll stop antibiotics, given off work until after lithotripsies performed Hepatic steatosis- elevated transaminitis, counseled regarding dietary modification the future Total Time Spent: Greater than 30 minutes This includes examination of the patient, discharge planning, medication reconciliation, and communication with other providers. Discharge Instructions Please refer to the electronic Patient Visit Report (Discharge Instructions) for additional information.
[2017-07-25] MEDS ORDERED: ONDA4TAB46 PO (10:35)
[2017-07-25] MEDS ORDERED: OXYC-57 PO (10:35)
[2017-07-26] MEDS ORDERED: OXYC-57 PO (11:34)
== END 2017-07-23 14:00 | disposition home or self-care (01) | DRG 694 ==
LOC: C.EDB 20:47 → C.MSW 23:54 → EDBEDREQSVC 07-21 00:16 → ENRESERV 07-21 00:19
PROVIDERS: ADMIT Hospitalist; ATTEND Internal Medicine
PROC: 0T778DZ Dilation of Left Ureter with Intraluminal Device, Via Natural or Artificial Opening Endoscopic (ICD-10-PCS; principal; 2017-07-22 13:30)
DX: N13.2 Hydronephrosis with renal and ureteral calculous obstruction (principal); K76.0 Fatty (change of) liver, not elsewhere classified; F17.210 Nicotine dependence, cigarettes, uncomplicated

== ENCOUNTER → 2017-07-26 | Day surgery (SDC) | payer OTHER ==
[2017-07-25 10:36] VITALS: Ht 165.1 cm; Wt 93.2 kg
[~2017-07-26] VITALS: Ht 165.1 cm; Wt 93.2 kg
[~2017-07-26] MED LIST changes: +ATROPINE SULFATE 0.1 MG/ML 5ML SYR IV PRN; +CIPROFLOXACIN 400MG / D5W IV SCH; +EpHEDrine SULFATE INJ 50 MG/ML AMP IV PRN; +FENTANYL CITRATE INJ 50 MCG/1 ML 2 ML VIAL IV PRN; +FENTANYL CITRATE INJ 50 MCG/1 ML 2 ML VIAL ONE; +LACTATED RINGER'S 1000ML 1,000 ML IV SCH; +MIDAZOLAM HCL 1 MG/ML 2ML VIAL ONE; +ONDA4TAB46 PO; +OXYC-57 PO; +OXYCODONE/ACETAMINOPHEN 5-325 TAB ONE; +OXYCODONE/ACETAMINOPHEN 5-325 TAB PO PRN; -TRAM-10 PO
--- NOTE | 2017-07-26 09:43 | DIAGNOSTIC IMAGING REPORT ---
[facility] CLINICAL HISTORY: Nephrolithiasis COMPARISON STUDY: July 22, 2017 FINDINGS: There is been interval placement of a left-sided double pigtail nephroureteral stent. There is a 6 mm lower pole left renal calculus. The previously identified proximal left ureteral calculus is no longer visualized, and likely was pushed back into the left kidney. There is no pathologic bowel dilatation. There are multiple pelvic basin calcifications likely representing fluid with. IMPRESSION: 1. Interval placement of a left-sided double pigtail left ureteral stent 2. 6 mm lower pole left renal calculus Electronically signed by: Vasiliy Villatoro M.D. 07/26/2017 9:41 AM Dictated Date/Time: 07/26/2017 9:39 AM
--- NOTE | 2017-07-26 11:34 | [facility] Operative Report ---
Operative Report Operative Date Jul 26, 2017. Pre-Operative Diagnosis LEFT RENAL STONE Post-Operative Diagnosis SAME Procedure(s) Performed LEFT ESWL Surgeon CRIS Staff Genetic Counselor Surgeon(s) NONE Estimated Blood Loss NONE Findings LEFT RENAL STONE Specimens NONE Drains HAS LEFT STENT Anesthesia GENERAL Complication(s) None Disposition Recovery Room / PACU Indications LEFT RENAL STONE Description of Procedure Patient was identified in the preoperative holding area, appropriate informed consent was reviewed and completed and the patient was transported to the operating suite. Upon arrival appropriate preoperative antibiotics were administered and general anesthesia induced. The patient was placed in supine position and the stone was localized under fluoroscopy. A total of [__2500_] shocks were delivered to the stone. There appeared to be good fragmentation of the stone. Details of this procedure can be found on the [facility] information sheet. At the conclusion of the case the patient was extubated and taken to the PACU in stable condition. There were no complications. I attest to the content of the Intraoperative Record and any orders documented therein. Any exceptions are noted below.
--- NOTE | 2017-07-26 11:35 | Discharge Instructions-[facility] ---
Discharge Instructions Date of Service Jul 26, 2017. Visit Reason for Visit: Stones Discharge Discharge Diagnosis / Problem: STONES Discharge Goals Goal(s): Therapeutic intervention Activity Recommendations Activity Limitations: resume your previous activity (TAKE IT EASY TODAY) Anesthesia . Post Anesthesia Instructions: If you have had General Anesthesia or IV Sedation: * Do not drive today. * Resume driving when surgeon permits. * Do not make important decisions or sign legal documents today. * Call surgeon for: 1. Temperature elevations greater than 101 degrees F. 2. Uncontrollable pain. 3. Excessive bleeding. 4. Persistent nausea and vomiting. 5. Medication intolerance (nausea, vomiting or rash). * For nausea and vomiting use only clear liquids such as: tea, soda, bouillon until nausea subsides, then gradually increase diet as tolerated. * If you have any concerns or questions, call your surgeon's office. If physician is unavailable and it is an emergency, call 911 or go to the nearest emergency room. . Instructions / Follow-Up Instructions / Follow-Up MEDICATIONS: Resume previous medications unless instructed otherwise by your surgeon. Resume pre-ESWL medication except for aspirin, coumadin or other blood thinners. __ Toradol 10 mg every 6 hours for initial pain. __ Lortab 5 mg 1-2 every 4 hours for pain. _X_ Percocet 5 mg 1-2 every 4 hours for pain. __ Macrodantin 50 mg x 3 a day. __ Flomax 1 tab daily one half (1/2) hour after supper. SPECIAL CARE INSTRUCTIONS: 1. Get KUB (x-ray) _X_ day before or day of office visit and bring x-ray to office __ get x-ray 2 days before and tell office you are getting x-rays when you call for the appointment. 2. Strain ALL urine. 3. Please call if you have a fever, chills, severe pain, or constant dribbling of urine. 4. Office phone number . FOLLOW UP VISIT: Please call the office to schedule a follow-up appointment at . Diet Recommendations Home Diet: resume previous diet Procedures Procedures Performed: LEFT ESWL Pending Studies Studies pending at discharge: no Medical Emergencies . Who to Call and When: Medical Emergencies: If at any time you feel your situation is an emergency, please call 911 immediately. . Non-Emergent Contact Non-Emergency issues call your: Urologist Call Non-Emergent contact if: temperature is above 101.5, your pain is not controlled . . "Provider Documentation" section prepared by Mohit Herrera. . [place] Drug Monitoring Program Search Results: patient reviewed within database
[2017-07-26 12:40] VITALS: TEMP 36.6
--- NOTE | 2017-07-26 12:54 | Anesthesia Progress Nt - [facility] ---
Anesthesia Post Op Note Date & Time Jul 26, 2017 at 12:54 Vital Signs Pain Intensity: 3 Vital Signs Past 12 Hours Date Time Temp Pulse Resp B/P (MAP) Pulse Ox O2 Delivery O2 Flow Rate FiO2 07/26/17 12:40 36.6 56 16 120/75 (90) 96 Room Air 07/26/17 12:23 78 19 95 07/26/17 12:23 74 19 07/26/17 12:22 36.7 69 16 107/73 95 Room Air 07/26/17 12:21 107/73 07/26/17 12:18 59 11 07/26/17 12:18 59 11 98 07/26/17 12:16 108/64 07/26/17 12:13 61 15 07/26/17 12:13 62 15 99 07/26/17 12:11 105/64 07/26/17 12:08 61 13 98 07/26/17 12:08 62 13 07/26/17 12:06 102/66 07/26/17 12:04 109/68 07/26/17 12:03 69 96 07/26/17 12:03 37.1 69 12 109/68 95 Mask 6 07/26/17 12:03 69 07/26/17 09:50 36.6 77 16 113/78 (90) 94 Room Air Notes Mental Status: alert / awake / arousable, participated in evaluation Pt Amnestic to Procedure: Yes Nausea / Vomiting: adequately controlled Pain: adequately controlled Airway Patency, RR, SpO2: stable & adequate BP & HR: stable & adequate Hydration State: stable & adequate Anesthetic Complications: no major complications apparent
[2017-07-26 13:14] VITALS: BP 120/78; PULSE 67; O2SAT 95
== END | disposition home or self-care (01) ==
LOC: X.SURG 09:31
PROVIDERS: ATTEND Urology
DX: N20.0 Calculus of kidney (principal); K22.70 Barrett's esophagus without dysplasia; K21.9 Gastro-esophageal reflux disease without esophagitis; K20.0 Eosinophilic esophagitis; Q39.1 Atresia of esophagus with tracheo-esophageal fistula; Q39.3 Congenital stenosis and stricture of esophagus; F17.200 Nicotine dependence, unspecified, uncomplicated

== ENCOUNTER → 2017-08-06 | Outpatient (CLI) | payer OTHER ==
[~2017-08-06] MED LIST changes: -ATROPINE SULFATE 0.1 MG/ML 5ML SYR IV PRN; -CIPROFLOXACIN 400MG / D5W IV SCH; -EpHEDrine SULFATE INJ 50 MG/ML AMP IV PRN; -FENTANYL CITRATE INJ 50 MCG/1 ML 2 ML VIAL IV PRN; -FENTANYL CITRATE INJ 50 MCG/1 ML 2 ML VIAL ONE; -LACTATED RINGER'S 1000ML 1,000 ML IV SCH; -MIDAZOLAM HCL 1 MG/ML 2ML VIAL ONE; -OXYCODONE/ACETAMINOPHEN 5-325 TAB ONE; -OXYCODONE/ACETAMINOPHEN 5-325 TAB PO PRN
== END | disposition home or self-care (01) ==
LOC: C.LABSPEC 16:56
PROVIDERS: ATTEND Urology
DX: N20.0 Calculus of kidney (principal)

== ENCOUNTER → 2017-08-06 | Outpatient (CLI) | payer OTHER ==
--- NOTE | 2017-08-06 14:15 | DIAGNOSTIC IMAGING REPORT ---
KUB HISTORY: N20.0 Nephrolithiasis COMPARISON: KUB 07/26/2017. FINDINGS: The bowel gas pattern is unremarkable. There are no dilated loops of small bowel to suggest an obstruction. No ureteral calculi. Calcifications in the deep pelvis likely represent phleboliths. These remain unchanged. Left ureteral stent appears in good position. The stone within the left kidney now measures 2 mm. This has decreased in size in the interval. No right renal calculi identified. Of note, the right renal shadow is partially obscured by overlying bowel gas. No pneumoperitoneum or pneumatosis. IMPRESSION: 1. The left ureteral stent appears in good position. No ureteral calculi. 2. Decrease in size in the stone within the lower pole the left kidney which now measures 2 mm. Electronically signed by: Gerry Ku M.D. 08/06/2017 2:13 PM Dictated Date/Time: 08/06/2017 2:10 PM
== END | disposition home or self-care (01) ==
LOC: C.RAD1850 13:46
PROVIDERS: ATTEND Nurse Practitioner Adult Health
DX: N20.0 Calculus of kidney (principal)

== ENCOUNTER → 2018-03-28 | Outpatient (CLI) | payer OTHER ==
--- NOTE | 2018-03-28 09:21 | DIAGNOSTIC IMAGING REPORT ---
R HIP UNILATERAL 2 VIEWS CLINICAL HISTORY: ARTHRITIS, DEGENERATIVE DISC DISEASE COMPARISON: None FINDINGS: Alignment of the right hip is anatomic. No fracture or suspicious lesion is present. There is no evidence for avascular necrosis. Joint spaces preserved. There is mild osteophytosis of the right hip. IMPRESSION: 1. No acute fracture. 2. Preserved right hip joint space with mild osteophytosis. Electronically signed by: Damion Musa M.D. 03/28/2018 9:20 AM Dictated Date/Time: 03/28/2018 9:19 AM
--- NOTE | 2018-03-28 09:22 | DIAGNOSTIC IMAGING REPORT ---
L HIP UNILATERAL 2 VIEWS CLINICAL HISTORY: ARTHRITIS, DEGENERATIVE DISC DISEASE COMPARISON: None FINDINGS: Alignment of the left hip is anatomic. There is no fracture. Joint spaces preserved. There is mild osteophytosis of the left hip. Pelvic calcifications reflect phleboliths. IMPRESSION: 1. No acute fracture. 2. Preserved left hip joint space with mild osteophytosis. Electronically signed by: Damion Musa M.D. 03/28/2018 9:21 AM Dictated Date/Time: 03/28/2018 9:20 AM
--- NOTE | 2018-03-28 09:25 | DIAGNOSTIC IMAGING REPORT ---
L-SPINE MIN 4 VIEWS ROUTINE CLINICAL HISTORY: ARTHRITIS, DEGENERATIVE DISC DISEASE COMPARISON: Lumbar spine radiographs October 22, 2010. FINDINGS: Alignment of the lumbar spine is anatomic. No fracture or suspicious lesion is identified. There is mild osteoarthritis of the bilateral sacroiliac joints. Pelvic calcifications likely reflect phlebolith. There is minimal disc space narrowing at L5-S1. There is mild multilevel endplate osteophytosis. IMPRESSION: 1. No acute lumbar spine fracture or subluxation. 2. Mild multilevel degenerative disc disease of the lumbar spine. Electronically signed by: Damion Musa M.D. 03/28/2018 9:24 AM Dictated Date/Time: 03/28/2018 9:21 AM
== END | disposition home or self-care (01) ==
LOC: C.RADPV 08:45
PROVIDERS: ATTEND Nurse Practitioner Family
DX: M19.90 Unspecified osteoarthritis, unspecified site (principal)